=== PATIENT | female | born 1975 | race Caucasian/White ===

== ENCOUNTER 2018-08-11 13:55 | Observation (INO) | payer OTHER ==
[2018-08-11] MEDS ORDERED: PANTOPRAZOLE 40 MG/10 ML VIAL IVP STA (15:01)
[2018-08-11] MEDS ORDERED: SODIUM CHLORIDE 0.9% 1,000 ML IV STA (15:01)
--- NOTE | 2018-08-11 15:04 | ED ---
General Adult HPI - General Chief complaint: GI Bleed Stated complaint: Abd Pain, Rectal Blooding Time Seen by Provider: 08/11/18 14:22 Source: patient, RN notes reviewed Mode of arrival: ambulatory Limitations: no limitations - History of Present Illness Initial comments: Patient is a pleasant 42-year-old female presenting to the emergency Department with rectal bleeding. Onset of symptoms was this morning around 5 AM. Patient has had intermittent cramping with associated bloody diarrhea. has had 5- 6 episodes of bloody diarrhea. Patient states cramping is becoming more constant, more so on the lower abdomen. Patient feels fullness is well. Patient has had some nausea, no vomiting. Patient states she was at [facility] a few weeks ago and had a computed tomography scan showing partial small bowel obstruction. Patient states she does have a history of similar symptoms twice previously associated with Crohn's disease. Patient states she also does have a history of diverticulitis. - Related Data Home Medications Medication Instructions Recorded Confirmed Albuterol Sulfate [Albuterol 2 puff INHALATION RT-Q12H 08/11/18 08/11/18 Sulfate Hfa] Lisinopril 40 mg PO DAILY 08/11/18 08/11/18 Ranitidine HCl [Zantac] 150 mg PO DAILY 08/11/18 08/11/18 metFORMIN HCL [Glucophage] 500 mg PO BID 08/11/18 08/11/18 Allergies Allergy/AdvReac Type Severity Reaction Status Date / Time adhesive Allergy Rash/Hives Verified 08/11/18 14:11 latex Allergy Rash/Hives Verified 08/11/18 14:11 Review of Systems ROS Statement: Those systems with pertinent positive or pertinent negative responses have been documented in the HPI. ROS Other: All systems not noted in ROS Statement are negative. Constitutional: Denies: fever Eyes: Denies: eye pain ENT: Denies: ear pain Respiratory: Denies: cough Cardiovascular: Denies: chest pain Endocrine: Denies: fatigue Gastrointestinal: Reports: abdominal pain, nausea, hematochezia. Denies: vomiting Genitourinary: Denies: dysuria Musculoskeletal: Denies: back pain Skin: Denies: rash Neurological: Denies: weakness Past Medical History Past Medical History: Atrial Fibrillation, Asthma, COPD, Diabetes Mellitus, Hypertension Additional Past Medical History / Comment(s): divirticulitis, crohns, kidney stones History of Any Multi-Drug Resistant Organisms: C-DIFF Date of last positivie culture/infection: 2016 MDRO Source:: stool Past Surgical History: Orthopedic Surgery, Tubal Ligation Additional Past Surgical History / Comment(s): uterine ablasion Past Psychological History: Depression Smoking Status: Current every day smoker Past Alcohol Use History: Rare Past Drug Use History: Marijuana General Exam Limitations: no limitations General appearance: alert, in no apparent distress Head exam: Present: atraumatic Eye exam: Present: normal appearance, PERRL ENT exam: Present: normal oropharynx Neck exam: Present: normal inspection Respiratory exam: Present: normal lung sounds bilaterally Cardiovascular Exam: Present: regular rate, normal rhythm Expanded Peripheral pulses: 2+: Dorsalis Pedis (R), Dorsalis Pedis (L) GI/Abdominal exam: Present: soft, tenderness (Mild tenderness in the epigastrium and left lower quadrant), normal bowel sounds. Absent: distended, guarding, rebound, rigid, pulsatile mass Extremities exam: Present: normal inspection Neurological exam: Present: alert Psychiatric exam: Present: normal affect, normal mood Skin exam: Present: normal color Course Vital Signs 08/11/18 08/11/18 08/11/18 14:08 16:16 17:06 Temperature 98.8 F Pulse Rate 80 79 71 Respiratory 20 18 18 Rate Blood Pressure 186/117 150/105 168/97 O2 Sat by Pulse 96 97 97 Oximetry Medical Decision Making - Medical Decision Making Patient reevaluated and updated. Case was discussed with Dr. celis covering for hospital call who will admit. He does request consults with surgery and GI. Patient does not meet sepsis criteria. There is potential for early mesenteric panniculitis and therefore IV antibiotics will be started pending surgical consultation - Lab Data Result diagrams: 08/11/18 14:40 08/11/18 14:40 Lab Results 08/11/18 08/11/18 08/11/18 Range/Units 14:40 14:40 14:40 WBC 6.5 (3.8-10.6) k/uL RBC 4.53 (3.80-5.40) m/uL Hgb 16.2 H (11.4-16.0) gm/dL Hct 47.3 H (34.0-46.0) % MCV 104.3 H (80.0-100.0) fL MCH 35.8 H (25.0-35.0) pg MCHC 34.3 (31.0-37.0) g/dL RDW 13.3 (11.5-15.5) % Plt Count 299 (150-450) k/uL Neutrophils % 64 % Lymphocytes % 27 % Monocytes % 6 % Eosinophils % 1 % Basophils % 0 % Neutrophils # 4.1 (1.3-7.7) k/uL Lymphocytes # 1.7 (1.0-4.8) k/uL Monocytes # 0.4 (0-1.0) k/uL Eosinophils # 0.1 (0-0.7) k/uL Basophils # 0.0 (0-0.2) k/uL Macrocytosis Slight PT 10.5 (9.0-12.0) sec INR 1.0 (<1.2) APTT 25.0 (22.0-30.0) sec Sodium 138 (137-145) mmol/L Potassium 4.4 (3.5-5.1) mmol/L Chloride 103 (98-107) mmol/L Carbon Dioxide 22 (22-30) mmol/L Anion Gap 13 mmol/L BUN 11 (7-17) mg/dL Creatinine 0.52 (0.52-1.04) mg/dL Est GFR (CKD-EPI)AfAm >90 (>60 ml/min/1.73 sqM) Est GFR (CKD-EPI)NonAf >90 (>60 ml/min/1.73 sqM) Glucose 238 H (74-99) mg/dL Calcium 10.3 H (8.4-10.2) mg/dL Total Bilirubin 0.6 (0.2-1.3) mg/dL AST 89 H (14-36) U/L ALT 103 H (9-52) U/L Alkaline Phosphatase 82 (38-126) U/L Troponin I (0.000-0.034) ng/mL Total Protein 7.5 (6.3-8.2) g/dL Albumin 4.6 (3.5-5.0) g/dL Urine Color Urine Appearance (Clear) Urine pH (5.0-8.0) Ur Specific [place] (1.001-1.035) Urine Protein (Negative) Urine Glucose (UA) (Negative) Urine Ketones (Negative) Urine Blood (Negative) Urine Nitrite (Negative) Urine Bilirubin (Negative) Urine Urobilinogen (<2.0) mg/dL Ur Leukocyte Esterase (Negative) Urine RBC (0-5) /hpf Urine WBC (0-5) /hpf Ur Squamous Epith Cells (0-4) /hpf Urine Bacteria (None) /hpf Urine Mucus (None) /hpf 08/11/18 08/11/18 Range/Units 14:40 14:40 WBC (3.8-10.6) k/uL RBC (3.80-5.40) m/uL Hgb (11.4-16.0) gm/dL Hct (34.0-46.0) % MCV (80.0-100.0) fL MCH (25.0-35.0) pg MCHC (31.0-37.0) g/dL RDW (11.5-15.5) % Plt Count (150-450) k/uL Neutrophils % % Lymphocytes % % Monocytes % % Eosinophils % % Basophils % % Neutrophils # (1.3-7.7) k/uL Lymphocytes # (1.0-4.8) k/uL Monocytes # (0-1.0) k/uL Eosinophils # (0-0.7) k/uL Basophils # (0-0.2) k/uL Macrocytosis PT (9.0-12.0) sec INR (<1.2) APTT (22.0-30.0) sec Sodium (137-145) mmol/L Potassium (3.5-5.1) mmol/L Chloride (98-107) mmol/L Carbon Dioxide (22-30) mmol/L Anion Gap mmol/L BUN (7-17) mg/dL Creatinine (0.52-1.04) mg/dL Est GFR (CKD-EPI)AfAm (>60 ml/min/1.73 sqM) Est GFR (CKD-EPI)NonAf (>60 ml/min/1.73 sqM) Glucose (74-99) mg/dL Calcium (8.4-10.2) mg/dL Total Bilirubin (0.2-1.3) mg/dL AST (14-36) U/L ALT (9-52) U/L Alkaline Phosphatase (38-126) U/L Troponin I <0.012 (0.000-0.034) ng/mL Total Protein (6.3-8.2) g/dL Albumin (3.5-5.0) g/dL Urine Color Yellow Urine Appearance Cloudy H (Clear) Urine pH 6.5 (5.0-8.0) Ur Specific [place] 1.023 (1.001-1.035) Urine Protein 1+ H (Negative) Urine Glucose (UA) 2+ H (Negative) Urine Ketones Negative (Negative) Urine Blood Small H (Negative) Urine Nitrite Negative (Negative) Urine Bilirubin Negative (Negative) Urine Urobilinogen <2.0 (<2.0) mg/dL Ur Leukocyte Esterase Negative (Negative) Urine RBC 3 (0-5) /hpf Urine WBC 1 (0-5) /hpf Ur Squamous Epith Cells 8 H (0-4) /hpf Urine Bacteria Rare H (None) /hpf Urine Mucus Occasional H (None) /hpf - Radiology Data Radiology results: report reviewed (Computed tomography scan of the abdomen pelvis does not reveal acute findings. Diverticulosis without evidence of diverticulitis. Mild jonathan appearance of the mesentery could read present early mesenteric panniculitis), image reviewed (Abdominal x-ray does show a loop left lower abdomen that could represent enteritis or ileus. There is also a questionable area which cannot completely rule out free air.) Disposition Clinical Impression: Lower gastrointestinal hemorrhage Disposition: ADMITTED IP TO THIS HOSP Is patient prescribed a controlled substance at d/c from ED?: No Referrals: None,Stated [Primary Care Provider] - 1-2 days Decision Time: 17:16
[2018-08-11 15:20] LABS: Appearance,Urine Cloudy (Clear); Bacteria,Urine Rare /hpf; Basophils % (A) 0 %; Bilirubin,Urine Negative (Negative); Blood,Urine Small (Negative); Color,Urine Yellow; Eosinophils # (A) 0.1 k/uL (0-0.7); Eosinophils % (A) 1 %; Glucose,Urine (UA) 2+ (Negative); HCT 47.3 % (34.0-46.0); HGB 16.2 gm/dL (11.4-16.0); Ketones,Urine Negative (Negative); Leukocyte Esterase,Urine Negative (Negative); Lymphocytes # (A) 1.7 k/uL (1.0-4.8); Lymphocytes % (A) 27 %; MCH 35.8 pg (25.0-35.0); MCHC 34.3 g/dL (31.0-37.0); MCV 104.3 fL (80.0-100.0); Macrocytosis Slight; Mean Platelet Volume 8.1; Monocytes # (A) 0.4 k/uL (0-1.0); Monocytes % (A) 6 %; Mucus,Urine Occasional /hpf; Neutrophils # (A) 4.1 k/uL (1.3-7.7); Neutrophils % (A) 64 %; Nitrite,Urine Negative (Negative); PH, Urine 6.5 (5.0-8.0); Platelet Count 299 k/uL (150-450); Protein,Urine 1+ (Negative); RBC 4.53 m/uL (3.80-5.40); RBC,Urine 3 /hpf (0-5); RDW 13.3 % (11.5-15.5); Specific Gravity,Urine 1.023 (1.001-1.035); Squamous Epithelial Cell,Urine 8 /hpf (0-4); Urobilinogen,Urine <2.0 mg/dL (<2.0); WBC 6.5 k/uL (3.8-10.6); WBC,Urine 1 /hpf (0-5)
[2018-08-11 15:24] LABS: Prothrombin Time 10.5 sec (9.0-12.0)
[2018-08-11 15:25] LABS: ALT 103 U/L (9-52); AST 89 U/L (14-36); Albumin 4.6 g/dL (3.5-5.0); Alkaline Phosphatase 82 U/L (38-126); Anion Gap 13 mmol/L; Blood Urea Nitrogen 11 mg/dL (7-17); Calcium 10.3 mg/dL (8.4-10.2); Carbon Dioxide 22 mmol/L (22-30); Chloride 103 mmol/L (98-107); Glucose 238 mg/dL (74-99); Potassium 4.4 mmol/L (3.5-5.1); Sodium 138 mmol/L (137-145); Total Bilirubin 0.6 mg/dL (0.2-1.3); Total Protein 7.5 g/dL (6.3-8.2)
--- NOTE | 2018-08-11 15:37 | XR ---
EXAMINATION TYPE: XR abdomen 1V DATE OF EXAM: 08/11/2018 COMPARISON: NONE HISTORY: Pain TECHNIQUE: One view abdominal series FINDINGS: The osseous structures are intact. Subsegmental changes at both lung bases. Previous surgery in the p sudha noted. Vascular calcification seen. Hypertrophic change of the acetabulum can be associated wit h femoral acetabular impingement. Prominent small bowel loop in the left abdomen is seen. Thin lucenc y seen in the right upper quadrant. Tiny amount of free air not excluded. CT scan recommended. IMPRESSION: 1. Prominent small bowel loop in the left abdomen could be associated with an ileus or enteritis. Thi n lucency seen in in the right upper quadrant. Case discussed with ER physician. CT scan recommended.. 2. Basilar subsegmental atelectasis favored over infiltrate.
--- NOTE | 2018-08-11 16:08 | CT ---
EXAMINATION TYPE: CT abdomen pelvis w con DATE OF EXAM: 08/11/2018 HISTORY: Pelvic pain and rectal bleeding CT DLP: 876.2mGycm Automated Exposure Control for Dose Reduction was Utilized. CONTRAST: CT scan of the abdomen and pelvis is performed without oral but with IV Contrast, patient injected wi th 100 mL of Isovue 300. COMPARISON: None. FINDINGS: LUNG BASES: No significant abnormality is appreciated. LIVER/GB: The liver is upper limits of normal to mildly enlarged. Liver is diffusely low-density cons istent with steatosis. PANCREAS: No significant abnormality is seen. SPLEEN: No significant abnormality is seen. ADRENALS: No significant abnormality is seen. KIDNEYS: No significant abnormality is seen. BOWEL: Evaluation bowel suboptimal secondary to lack of enteric contrast. Stomach is poorly distended and thus suboptimally evaluated. There is no suspicious small or large bowel dilatation. Sigmoid col onic diverticulosis is present without convincing CT evidence for acute diverticulitis. Normal-appear ing appendix is seen in the right pelvis. UTERUS/ADNEXA: Anteverted uterus is seen lobulated fundus is suggesting underlying fibroid sagittal i mage 60. Tubal ligation clip along the left superior margin is noted. Scattered pelvic phleboliths ar e seen. Other clip is displaced into pelvic cul-de-sac. LYMPH NODES: No greater than 1cm abdominal or pelvic lymph nodes are appreciated. Prominent but subce ntimeter lymph nodes left mid abdominal mesentery with mild haziness axial image 42 OSSEOUS STRUCTURES: Mild disc space narrowing L4-L5 level. OTHER: No significant additional abnormality is seen. IMPRESSION: No significant acute finding is seen to account for patient's clinical symptoms of pain. Sigmoid colonic diverticulosis is present without CT evidence for acute diverticulitis. Mild jonathan me sentery appearance could reflect a early mesenteric panniculitis left mid to lower abdomen.
[2018-08-11] MEDS ORDERED: HYDROmorphone 1 MG/ML 1 ML SYRINGE IVP STA (16:10)
[2018-08-11] MEDS ORDERED: ENALAPRILAT 1.25 MG/ML 1 ML VIAL IVP STA (16:56)
[2018-08-11] MEDS ORDERED: NALOXONE 0.4 MG/ML 1 ML VIAL IV PRN (17:17)
[2018-08-11] MEDS: SODIUM CHLORIDE 0.9% 1,000 ML IV SCH (19:02)
--- NOTE | 2018-08-11 19:26 | P.HPIM ---
History of Present Illness H&P Date: 08/11/18 The patient is a 42-year-old female with a past medical history of atrial fibrillation (on aspirin only), Crohn's disease (noncompliant with follow-ups), history of diverticulitis, COPD, diabetes mellitus, and hypertension presents to the ED for rectal bleeding. The patient reports that the bleeding started overnight and continued up until afternoon today. She reported that she had 3-4 cups worth of bright red blood per rectum, with associated abdominal pain which started at around 2 AM, with the last bowel movement close to noon. She notes that she has had episodes similar to this in the past when she had been admitted to hospitals and was subsequently diagnosed with Crohn's disease. She however failed to follow-up with any GI doctor and notes that she seldom follows up with her PMD. Patient also noted that she has had chronic persistent diarrhea for the past few months, which is not alleviated with any [id number] medications. The patient also reported that she had gone to an urgent care center 2 days ago where she was informed that she had a partial small bowel obstruction. At time of interview, she reports that her pain is a 6 out of 10, in the lower abdomen, nonradiating, with associated nausea. She also endorsed one episode of vomiting earlier today. She otherwise denied fever, chills, chest pain, shortness of breath, or dysuria. The patient underwent an extensive evaluation in the ED with WBC count 6.4, hemoglobin 16.2, AST 89, ALT 103, and an abdominal pelvis computed tomography scan with contrast showing possible early mesenteric panniculitis. The patient was subsequently admitted to the medicine service for further management. Review of Systems Pertinent positives and negatives as discussed in HPI, a complete review of systems was performed and all other systems are negative. Past Medical History Past Medical History: Atrial Fibrillation, Asthma, COPD, Diabetes Mellitus, Hy pertension Additional Past Medical History / Comment(s): divirticulitis, crohns, kidney stones History of Any Multi-Drug Resistant Organisms: C-DIFF Date of last positivie culture/infection: 2015 MDRO Source:: stool Past Surgical History: Orthopedic Surgery, Tubal Ligation Additional Past Surgical History / Comment(s): uterine ablasion Past Psychological History: Depression Smoking Status: Current every day smoker Past Alcohol Use History: Rare Past Drug Use History: Marijuana Medications and Allergies Home Medications Medication Instructions Recorded Confirmed Type Albuterol Sulfate [Albuterol 2 puff INHALATION RT-Q12H 08/11/18 08/11/18 History Sulfate Hfa] Lisinopril 40 mg PO DAILY 08/11/18 08/11/18 History Ranitidine HCl [Zantac] 150 mg PO DAILY 08/11/18 08/11/18 History metFORMIN HCL [Glucophage] 500 mg PO BID 08/11/18 08/11/18 History Allergies Allergy/AdvReac Type Severity Reaction Status Date / Time adhesive Allergy Rash/Hives Verified 08/11/18 14:11 latex Allergy Rash/Hives Verified 08/11/18 14:11 Physical Exam Vitals: Vital Signs Temp Pulse Resp BP Pulse Ox 08/11/18 18:51 98.7 F 61 18 156/102 97 08/11/18 17:06 71 18 168/97 97 08/11/18 16:16 79 18 150/105 97 08/11/18 14:08 98.8 F 80 20 186/117 96 Intake and Output 08/11/18 08/11/18 08/11/18 06:59 14:59 22:59 Other: Weight 72.575 kg Results CBC & Chem 7: 08/11/18 14:40 08/11/18 14:40 Labs: Abnormal Lab Results - Last 24 Hours (Table) 08/11/18 08/11/18 08/11/18 Range/Units 14:40 14:40 14:40 Hgb 16.2 H (11.4-16.0) gm/dL Hct 47.3 H (34.0-46.0) % MCV 104.3 H (80.0-100.0) fL MCH 35.8 H (25.0-35.0) pg Glucose 238 H (74-99) mg/dL Calcium 10.3 H (8.4-10.2) mg/dL AST 89 H (14-36) U/L ALT 103 H (9-52) U/L Urine Appearance Cloudy H (Clear) Urine Protein 1+ H (Negative) Urine Glucose (UA) 2+ H (Negative) Urine Blood Small H (Negative) Ur Squamous Epith Cells 8 H (0-4) /hpf Urine Bacteria Rare H (None) /hpf Urine Mucus Occasional H (None) /hpf Assessment and Plan Plan: Acute Crohn's disease flare with GI bleeding -Nothing by mouth for now -GI consulted -IV fluids -Monitor CBC Atrial fibrillation -Patient reports that she does not wish to take anticoagulants since 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 CODE STATUS:Full Code Discussed with: Patient Anticipated discharge date: 08/13/[address]: Home A total of 40 minutes was spent on the care of this complex patient more than 50% of the time was spent in counseling and care coordination.
[2018-08-11 20:12] LABS: HCT 47.1 % (34.0-46.0); HGB 16.2 gm/dL (11.4-16.0); MCH 36.4 pg (25.0-35.0); MCHC 34.5 g/dL (31.0-37.0); MCV 105.5 fL (80.0-100.0); Macrocytosis Slight; Mean Platelet Volume 7.6; Platelet Count 285 k/uL (150-450); RBC 4.46 m/uL (3.80-5.40); RDW 13.2 % (11.5-15.5); WBC 6.3 k/uL (3.8-10.6)
[2018-08-11] MEDS: MORPHINE SULFATE 4 MG/ML SYRINGE IVP PRN (20:23)
[2018-08-11 21:14] LABS: Glucose,Whole Blood 167 mg/dL (75-99)
[2018-08-11] MEDS: INSULIN ASPART (NovoLOG) 100 UNIT/ML VIAL SQ SCH (21:17)
[2018-08-11] MEDS: ALBUTEROL NEBULIZED 2.5 MG/3 ML INHALATION SCH (21:43)
[2018-08-12] MEDS: MORPHINE SULFATE 4 MG/ML SYRINGE IVP PRN ×2 (02:20→06:10)
[2018-08-12] MEDS: SODIUM CHLORIDE 0.9% 1,000 ML IV SCH (05:59)
[2018-08-12 06:54] LABS: Glucose,Whole Blood 179 mg/dL (75-99)
[2018-08-12] MEDS ORDERED: MORPHINE SULFATE 2 MG/ML SYRINGE IVP PRN (07:19)
[2018-08-12] MEDS ORDERED: PANTOPRAZOLE 40 MG TABLET PO SCH (07:30)
[2018-08-12] MEDS: ALBUTEROL NEBULIZED 2.5 MG/3 ML INHALATION SCH (07:43)
[2018-08-12 07:52] VITALS: RESP 16
[2018-08-12] MEDS ORDERED: LISINOPRIL 20 MG TAB PO SCH (09:00)
[2018-08-12] MEDS ORDERED: PANTOPRAZOLE 40 MG/10 ML VIAL IV SCH (09:00)
[2018-08-12] MEDS: INSULIN ASPART (NovoLOG) 100 UNIT/ML VIAL SQ SCH ×2 (10:12→16:13)
--- NOTE | 2018-08-12 11:19 | P.CONS ---
History of Present Illness - Reason for Consult Consult date: 08/12/18 Abdominal pain and rectal bleeding history of Crohn's Requesting physician: Parish Arias - Chief Complaint Abdominal pain and rectal bleeding history of Crohn's - History of Present Illness 42-year-old female with a reported history of Crohn's disease diagnosed at 12 years of age, marijuana usage, diabetes, remote alcohol abuse, remote cocaine abuse, colonic diverticulosis, Clostridium difficile colitis admitted with multiple complaints such as nausea vomiting acute on chronic abdominal pain and blood-tinged diarrhea 2 days. She has chronic diarrhea on a daily basis several times a day usually not bloody. She reports being evaluated at a local urgent care center within the past week and was told she had a bowel obstruction. Admission no episodes of diarrhea or rectal bleeding. Patient is new to the [facility] she reports a diagnosis of Crohn's at the age of 12 but has not followed up with a driller helper in several years. Last colonoscopy to her memory possibly 8 years ago remembers colonic diverticulosis but unsure if she had active inflammatory bowel disease. She's been on previous maintenance medications but cannot recall the names because it's been so many years. Denies fever chills hematemesis or melena. Pain is chronic for several years generalized across the mid to lower abdomen. She smokes marijuana to sustain her appetite. She has multiple tattoos most of them not performed and a tattoo parlor. No history of known liver disorders or hepatitis. No history of intravenous drug abuse. No history of bowel or gastric resection/surgeries. No recent antibiotics. No changes in vision or skin. No changes in diet recent travels or sick contacts. No active alcohol consumption no NSAIDs or aspirin. White count 6.5. Hemoglobin 16.2. MCV 104. Platelet 299. Repeat hemoglobin 16.2. INR 1.0. BUN 11. Creatinine 0.5. Total bilirubin 0.6. AST 89. ALT 103. AP 82. Troponin less than 0.012. Afebrile. CT abdomen and pelvis no suspicious small or large bowel dilatation. Sigmoid colonic diverticulosis no evidence of acute diverticulitis. Normal appearing appendix. Review of Systems Constitutional: Denies fever, chills, sweats, weight gain, or loss. HEENT: Negative for migraines, blurred vision or loss, earaches, drainage, tinnitus, oral mucosal lesions, dysphagia, or odynophagia. CARDIAC: History of atrial fibrillation. Negative for chest pain, arrhythmias, or palpitation. RESPIRATORY: Negative for shortness of breath, hemoptysis, cough, or sputum production. GI: See HPI for pertinent findings. : Negative for hematuria, urgency, frequency, polyuria, or dysuria. GYNc: Denies the possibility of . Negative vaginal discharge. MUSCULOSKELETAL: Negative for muscle aches, swelling, arthritis, and arthralgias. NEUROLOGIC: Negative for stroke or TIA. ENDOCRINE: Negative for thyroid problems. SKIN: Negative for rash or itching. PSYCHIATRIC: History of anxiety. Past Medical History Past Medical History: Atrial Fibrillation, Asthma, COPD, Diabetes Mellitus, Hypertension Additional Past Medical History / Comment(s): divirticulitis, crohns, kidney stones History of Any Multi-Drug Resistant Organisms: C-DIFF Year Discovered:: 2015 MDRO Source:: stool Past Surgical History: Orthopedic Surgery, Tubal Ligation Additional Past Surgical History / Comment(s): uterine ablasion Past Anesthesia/Blood Transfusion Reactions: No Reported Reaction Past Psychological History: Depression Smoking Status: Current every day smoker Past Alcohol Use History: Daily Additional Past Alcohol Use History / Comment(s): pt states she drinks one "double shot" of liquor per day. Past Drug Use History: Marijuana - Past Family History Mother Family Medical History: COPD Father Family Medical History: Cancer, COPD Medications and Allergies Home Medications Medication Instructions Recorded Confirmed Type Albuterol Sulfate [Albuterol 2 puff INHALATION RT-Q12H 08/11/18 08/11/18 History Sulfate Hfa] Lisinopril 40 mg PO DAILY 08/11/18 08/11/18 History Ranitidine HCl [Zantac] 150 mg PO DAILY 08/11/18 08/11/18 History metFORMIN HCL [Glucophage] 500 mg PO BID 08/11/18 08/11/18 History Allergies Allergy/AdvReac Type Severity Reaction Status Date / Time adhesive Allergy Rash/Hives Verified 08/11/18 14:11 latex Allergy Rash/Hives Verified 08/11/18 14:11 Physical Exam Vitals: Vital Signs Temp Pulse Pulse Resp BP BP Pulse Ox 08/12/18 10:31 167/96 08/12/18 07:00 98.2 F 71 16 153/101 95 08/12/18 06:08 154/93 08/12/18 01:45 98.3 F 71 18 137/98 96 08/11/18 19:30 98.0 F 60 18 148/95 96 08/11/18 19:06 98.4 F 59 L 18 142/95 96 08/11/18 18:51 98.7 F 61 18 156/102 97 08/11/18 17:06 71 18 168/97 97 08/11/18 16:16 79 18 150/105 97 08/11/18 14:08 98.8 F 80 20 186/117 96 Intake and Output 08/11/18 08/12/18 08/12/18 22:59 06:59 14:59 Intake Total 240 1750 Balance 240 1750 Intake: Intake, IV Titration 1750 Amount Sodium Chloride 0.9% 1, 1000 000 ml @ 100 mls/hr IV . Q10H STA Rx#:[id number] Sodium Chloride 0.9% 1, 750 000 ml @ 75 mls/hr IV . [id number] JEYSON Rx#:[id number] Oral 240 Other: # Voids 1 3 General appearance: The patient is alert, oriented, in no acute distress. Tearful anxious but polite and pleasant. HET: Head is normocephalic and atraumatic. Pupils are equal and reactive. Oropharynx is clear without lesions. Neck: Supple without lymphadenopathy. Trachea midline. Heart: S1 S2. Regular rate and rhythm. Lungs: No crackles or wheezes are heard. Abdomen: Soft, very mild tenderness across the midabdomen, nondistended with b owel sounds. No peritoneal signs. No palpable organomegaly or masses. Extremities: Multiple tattoos on all extremities. Normal skin color and turgor. No cyanosis, rash, ulceration, clubbing, or edema. Radial and pedal pulses are 2/4 bilaterally. Neurological: No focal deficits. Strength and sensation are grossly intact. Results CBC & Chem 7: 08/11/18 19:56 08/11/18 14:40 Labs: Abnormal Lab Results - Last 24 Hours (Table) 08/11/18 08/11/18 08/11/18 Range/Units 14:40 14:40 14:40 Hgb 16.2 H (11.4-16.0) gm/dL Hct 47.3 H (34.0-46.0) % MCV 104.3 H (80.0-100.0) fL MCH 35.8 H (25.0-35.0) pg Glucose 238 H (74-99) mg/dL POC Glucose (mg/dL) (75-99) mg/dL Calcium 10.3 H (8.4-10.2) mg/dL AST 89 H (14-36) U/L ALT 103 H (9-52) U/L Urine Appearance Cloudy H (Clear) Urine Protein 1+ H (Negative) Urine Glucose (UA) 2+ H (Negative) Urine Blood Small H (Negative) Ur Squamous Epith Cells 8 H (0-4) /hpf Urine Bacteria Rare H (None) /hpf Urine Mucus Occasional H (None) /hpf 08/11/18 08/11/18 08/12/18 Range/Units 19:56 21:13 06:52 Hgb 16.2 H (11.4-16.0) gm/dL Hct 47.1 H (34.0-46.0) % MCV 105.5 H (80.0-100.0) fL MCH 36.4 H (25.0-35.0) pg Glucose (74-99) mg/dL POC Glucose (mg/dL) 167 H 179 H (75-99) mg/dL Calcium (8.4-10.2) mg/dL AST (14-36) U/L ALT (9-52) U/L Urine Appearance (Clear) Urine Protein (Negative) Urine Glucose (UA) (Negative) Urine Blood (Negative) Ur Squamous Epith Cells (0-4) /hpf Urine Bacteria (None) /hpf Urine Mucus (None) /hpf CT scan - abdomen: report reviewed (Dr. Gilbert) Assessment and Plan (1) Abdominal pain Narrative/Plan: 42-year-old female admitted with history of Clostridium difficile colitis symptoms of acute on chronic abdominal pain with chronic diarrhea blood-tinged over the last 2 days with a hemoglobin of 16.2 and reported history of Crohn's disease diagnosed at age 12 with no current follow-up presently not on maintenance medications. Patient's history of Crohn's is somewhat limited most recent colonoscopy to her memory was several years ago details of her inflammatory bowel disease previous maintenance medications are not clear at this time. Etiology of her abdominal pain is unclear differentials to consider but not excluded are possible gastroenteritis possible irritable bowel syndrome- D, possible exacerbation of inflammatory bowel disease, possible infectious colitis. Bleeding could be hemorrhoidal in nature possible diverticular in nature underlying neoplasm, bleeding AVM, focal colitis cannot be excluded however computed tomography scan reported no evidence of colonic inflammation, colitis bowel obstruction or diverticulitis. Current Visit: Yes Status: Acute Code(s): R10.9 - UNSPECIFIED ABDOMINAL PAIN SNOMED Code(s): 26202218 (2) Transaminitis Narrative/Plan: Mild transaminitis without jaundice or elevation in alkaline phosphatase Current Visit: Yes Status: Acute Code(s): R74.0 - NONSPEC ELEV OF LEVELS OF TRANSAMNS & LACTIC ACID DEHYDRGNSE SNOMED Code(s): 089613581 Plan: 1. Sed rate CRP stool studies including stool culture, Clostridium difficile testing, lactoferrin and calprotectin. 2. Low residue diet as tolerated. 3. Bentyl 20 mg 4 times a day. 4. Hepatitis screen. 5. Inpatient endoscopic exams not planned until more information can be received and evaluate her regarding her history of inflammatory bowel disease. She was advised to follow up in the outpatient setting in 2-3 weeks for reevaluation. At that time we'll review requested stool studies and chemistries and discussed outpatient EGD colonoscopy. Thank you for this kind referral and the opportunity to participate in the care of your patient. This consultation was discussed with Dr. Gilbert. The impression and plan of care have been directed as dictated.
[2018-08-12 11:42] LABS: Glucose,Whole Blood 201 mg/dL (75-99)
[2018-08-12] MEDS ORDERED: DICYCLOMINE 20 MG TAB PO SCH (12:00)
--- NOTE | 2018-08-12 13:33 | P.GSCN ---
History of Present Illness Consult date: 08/12/18 Reason for Consult: lower gi hemorrhage Requesting physician: Mane Macdonald History of present illness: CHIEF COMPLAINT: Rectal bleeding, abdominal pain HISTORY OF PRESENT ILLNESS: 42-year-old female who presented to the emergency room with a chief complaint of abdominal pain and rectal bleeding. Patient reports chronic abdominal pain which has worsened over the last few days. She reports "cramping" of her lower abdomen during examination. She reports nausea without emesis. She reports chronic diarrhea. She reports blood in her stool over the past few days. She reports a history of Crohns disease diagnosed at age 12 and also diverticulitis. Patient states she has not had a colonoscopy in several years. Patient states she is new to the area and has not established with a GI physician yet. WBC 6.5. Hemoglobin 16.2. Total bilirubin 0.6. AST 89. ALT 103. PAST MEDICAL HISTORY: See list. PAST SURGICAL HISTORY: See list. SOCIAL HISTORY: No illicit drug use. REVIEW OF SYSTEMS: CONSTITUTIONAL: Denies fever or chills. HEENT: Denies blurred vision, vision changes, or eye pain. Denies hemoptysis CARDIOVASCULAR: Denies chest pain or pressure. RESPIRATORY: No shortness of breath. GASTROINTESTINAL: Refer to HPI for pertinent findings HEMATOLOGIC: Denies bleeding disorders. GENITOURINARY: Denies any blood in urine. SKIN: Denies pruitis. Denies rash. PHYSICAL EXAM: VITAL SIGNS: Reviewed. GENERAL: Well-developed in no acute distress. HEENT: No sclera icterus. Extraocular movements grossly intact. Moist buccal mucosa. Head is atraumatic, normocephalic. ABDOMEN: Soft. Nondistended. Nontender. NEUROLOGIC: Alert and oriented. Cranial nerves II through XII grossly intact. IMAGING: Per radiologist's dictation: 1. CT abdomen and pelvis: No significant acute finding is seen to account for patient's clinical symptoms of pain. Sigmoid colonic diverticulosis is present without CT evidence for acute diverticulitis. Mild jonathan mesentery appearance could reflect early mesenteric panniculitis left mid to lower abdomen. ASSESSMENT: 1. Abdominal pain with blood-tinged diarrhea in a patient with history of Crohns disease 2. Diverticulosis without CT evidence of diverticulitis 3. Transaminitis PLAN: No surgical intervention recommended at this time. Continue workup and management per GI services. Nurse practitioner note has been reviewed by physician. Signing provider agrees with the documented findings, assessment, and plan of care. Past Medical History Past Medical History: Atrial Fibrillation, Asthma, COPD, Diabetes Mellitus, Hypertension Additional Past Medical History / Comment(s): divirticulitis, crohns, kidney stones History of Any Multi-Drug Resistant Organisms: C-DIFF Year Discovered:: 2016 MDRO Source:: stool Past Surgical History: Orthopedic Surgery, Tubal Ligation Additional Past Surgical History / Comment(s): uterine ablasion Past Anesthesia/Blood Transfusion Reactions: No Reported Reaction Past Psychological History: Depression Smoking Status: Current every day smoker Past Alcohol Use History: Daily Additional Past Alcohol Use History / Comment(s): pt states she drinks one "double shot" of liquor per day. Past Drug Use History: Marijuana - Past Family History Mother Family Medical History: COPD Father Family Medical History: Cancer, COPD Medications and Allergies Home Medications Medication Instructions Recorded Confirmed Type Albuterol Sulfate [Albuterol 2 puff INHALATION RT-Q12H 08/11/18 08/11/18 History Sulfate Hfa] Lisinopril 40 mg PO DAILY 08/11/18 08/11/18 History Ranitidine HCl [Zantac] 150 mg PO DAILY 08/11/18 08/11/18 History metFORMIN HCL [Glucophage] 500 mg PO BID 08/11/18 08/11/18 History Allergies Allergy/AdvReac Type Severity Reaction Status Date / Time adhesive Allergy Rash/Hives Verified 08/11/18 14:11 latex Allergy Rash/Hives Verified 08/11/18 14:11 Surgical - Exam Vital Signs Temp Pulse Resp BP Pulse Ox 98.8 F 80 20 186/117 96 08/11/18 14:08 08/11/18 14:08 08/11/18 14:08 08/11/18 14:08 08/11/18 14:08 Results - Labs 08/11/18 19:56 08/11/18 14:40 Abnormal Lab Results - Last 24 Hours (Table) 08/11/18 08/11/18 08/11/18 Range/Units 14:40 14:40 14:40 Hgb 16.2 H (11.4-16.0) gm/dL Hct 47.3 H (34.0-46.0) % MCV 104.3 H (80.0-100.0) fL MCH 35.8 H (25.0-35.0) pg Glucose 238 H (74-99) mg/dL POC Glucose (mg/dL) (75-99) mg/dL Calcium 10.3 H (8.4-10.2) mg/dL AST 89 H (14-36) U/L ALT 103 H (9-52) U/L Urine Appearance Cloudy H (Clear) Urine Protein 1+ H (Negative) Urine Glucose (UA) 2+ H (Negative) Urine Blood Small H (Negative) Ur Squamous Epith Cells 8 H (0-4) /hpf Urine Bacteria Rare H (None) /hpf Urine Mucus Occasional H (None) /hpf 08/11/18 08/11/18 08/12/18 Range/Units 19:56 21:13 06:52 Hgb 16.2 H (11.4-16.0) gm/dL Hct 47.1 H (34.0-46.0) % MCV 105.5 H (80.0-100.0) fL MCH 36.4 H (25.0-35.0) pg Glucose (74-99) mg/dL POC Glucose (mg/dL) 167 H 179 H (75-99) mg/dL Calcium (8.4-10.2) mg/dL AST (14-36) U/L ALT (9-52) U/L Urine Appearance (Clear) Urine Protein (Negative) Urine Glucose (UA) (Negative) Urine Blood (Negative) Ur Squamous Epith Cells (0-4) /hpf Urine Bacteria (None) /hpf Urine Mucus (None) /hpf 08/12/18 Range/Units 11:40 Hgb (11.4-16.0) gm/dL Hct (34.0-46.0) % MCV (80.0-100.0) fL MCH (25.0-35.0) pg Glucose (74-99) mg/dL POC Glucose (mg/dL) 201 H (75-99) mg/dL Calcium (8.4-10.2) mg/dL AST (14-36) U/L ALT (9-52) U/L Urine Appearance (Clear) Urine Protein (Negative) Urine Glucose (UA) (Negative) Urine Blood (Negative) Ur Squamous Epith Cells (0-4) /hpf Urine Bacteria (None) /hpf Urine Mucus (None) /hpf Diabetes panel 08/11/18 Range/Units 14:40 Sodium 138 (137-145) mmol/L Potassium 4.4 (3.5-5.1) mmol/L Chloride 103 (98-107) mmol/L Carbon Dioxide 22 (22-30) mmol/L BUN 11 (7-17) mg/dL Creatinine 0.52 (0.52-1.04) mg/dL Glucose 238 H (74-99) mg/dL Calcium 10.3 H (8.4-10.2) mg/dL AST 89 H (14-36) U/L ALT 103 H (9-52) U/L Alkaline Phosphatase 82 (38-126) U/L Total Protein 7.5 (6.3-8.2) g/dL Albumin 4.6 (3.5-5.0) g/dL Calcium panel 08/11/18 Range/Units 14:40 Calcium 10.3 H (8.4-10.2) mg/dL Albumin 4.6 (3.5-5.0) g/dL Pituitary panel 08/11/18 Range/Units 14:40 Sodium 138 (137-145) mmol/L Potassium 4.4 (3.5-5.1) mmol/L Chloride 103 (98-107) mmol/L Carbon Dioxide 22 (22-30) mmol/L BUN 11 (7-17) mg/dL Creatinine 0.52 (0.52-1.04) mg/dL Glucose 238 H (74-99) mg/dL Calcium 10.3 H (8.4-10.2) mg/dL Adrenal panel 08/11/18 Range/Units 14:40 Sodium 138 (137-145) mmol/L Potassium 4.4 (3.5-5.1) mmol/L Chloride 103 (98-107) mmol/L Carbon Dioxide 22 (22-30) mmol/L BUN 11 (7-17) mg/dL Creatinine 0.52 (0.52-1.04) mg/dL Glucose 238 H (74-99) mg/dL Calcium 10.3 H (8.4-10.2) mg/dL Total Bilirubin 0.6 (0.2-1.3) mg/dL AST 89 H (14-36) U/L ALT 103 H (9-52) U/L Alkaline Phosphatase 82 (38-126) U/L Total Protein 7.5 (6.3-8.2) g/dL Albumin 4.6 (3.5-5.0) g/dL Assessment and Plan (1) Crohn's disease Current Visit: Yes Status: Acute Code(s): K50.90 - CROHN'S DISEASE, UNSPECIFIED, WITHOUT COMPLICATIONS SNOMED Code(s): 32725535 (2) Abdominal pain Current Visit: Yes Status: Acute Code(s): R10.9 - UNSPECIFIED ABDOMINAL PAIN SNOMED Code(s): 22837894 (3) Transaminitis Current Visit: Yes Status: Acute Code(s): R74.0 - NONSPEC ELEV OF LEVELS OF TRANSAMNS & LACTIC ACID DEHYDRGNSE SNOMED Code(s): 389721419
[2018-08-12 14:48] VITALS: BP 147/81; PULSE 67; TEMP 98.3
--- NOTE | 2018-08-12 16:16 | P.PN ---
Subjective Progress Note Date: 08/12/18 Patient was seen and examined at the bedside on 08/12/2018. She reports that her abdominal pain and diarrhea have improved since yesterday, currently at a 4 out of 10. She hasn't had any additional bowel movements since midnight. She further denied fever, chills, or dysuria. Objective - Vital Signs Vital signs: Vital Signs Temp 98.2 F 08/12/18 07:00 Pulse 71 08/12/18 07:00 Resp 16 08/12/18 07:00 BP 167/96 08/12/18 10:31 Pulse Ox 95 08/12/18 07:00 Intake & Output 08/11/18 08/12/18 08/12/18 18:59 06:59 18:59 Intake Total 1989 Balance 1989 Weight 72.575 kg Intake: Intake, IV Titration 1750 Amount Sodium Chloride 0.9% 1, 1000 000 ml @ 100 mls/hr IV . Q10H STA Rx#:[id number] Sodium Chloride 0.9% 1, 750 000 ml @ 75 mls/hr IV . [id number] JEYSON Rx#:[id number] Oral 240 Other: # Voids 3 3 # Bowel Movements 0 - Exam General: Non-toxic, in no acute distress, appears older than stated age, normal weight HEENT: NC/AT, anicteric sclerae, moist conjunctiva, no lid-lag, PERRLA Cardiovascular: S1/S2 wnl, no murmurs, rubs, or gallops Lungs: Clear to auscultation, normal respiratory effort, no accessory muscle use Abdominal: Soft, mild diffuse tenderness to palpation, non-distended, no guarding, rebound, or rigidity Skin: Warm, dry Extremities: No edema or contractures Psychiatric: Alert and oriented to person, place and time, appropriate affect Neuro: CN II-XII grossly intact, Strength 5/5 in all 4 extremities, Speech intact, Sensation to light touch grossly intact throughout - Labs CBC & Chem 7: 08/11/18 19:56 08/11/18 14:40 Labs: Abnormal Lab Results - Last 24 Hours (Table) 08/11/18 08/11/18 08/11/18 Range/Units 14:40 14:40 14:40 Hgb 16.2 H (11.4-16.0) gm/dL Hct 47.3 H (34.0-46.0) % MCV 104.3 H (80.0-100.0) fL MCH 35.8 H (25.0-35.0) pg Glucose 238 H (74-99) mg/dL POC Glucose (mg/dL) (75-99) mg/dL Calcium 10.3 H (8.4-10.2) mg/dL AST 89 H (14-36) U/L ALT 103 H (9-52) U/L Urine Appearance Cloudy H (Clear) Urine Protein 1+ H (Negative) Urine Glucose (UA) 2+ H (Negative) Urine Blood Small H (Negative) Ur Squamous Epith Cells 8 H (0-4) /hpf Urine Bacteria Rare H (None) /hpf Urine Mucus Occasional H (None) /hpf 08/11/18 08/11/18 08/12/18 Range/Units 19:56 21:13 06:52 Hgb 16.2 H (11.4-16.0) gm/dL Hct 47.1 H (34.0-46.0) % MCV 105.5 H (80.0-100.0) fL MCH 36.4 H (25.0-35.0) pg Glucose (74-99) mg/dL POC Glucose (mg/dL) 167 H 179 H (75-99) mg/dL Calcium (8.4-10.2) mg/dL AST (14-36) U/L ALT (9-52) U/L Urine Appearance (Clear) Urine Protein (Negative) Urine Glucose (UA) (Negative) Urine Blood (Negative) Ur Squamous Epith Cells (0-4) /hpf Urine Bacteria (None) /hpf Urine Mucus (None) /hpf 08/12/18 Range/Units 11:40 Hgb (11.4-16.0) gm/dL Hct (34.0-46.0) % MCV (80.0-100.0) fL MCH (25.0-35.0) pg Glucose (74-99) mg/dL POC Glucose (mg/dL) 201 H (75-99) mg/dL Calcium (8.4-10.2) mg/dL AST (14-36) U/L ALT (9-52) U/L Urine Appearance (Clear) Urine Protein (Negative) Urine Glucose (UA) (Negative) Urine Blood (Negative) Ur Squamous Epith Cells (0-4) /hpf Urine Bacteria (None) /hpf Urine Mucus (None) /hpf Assessment and Plan Plan: Abdominal pain, diarrhea -GI recs appreciated -Workup pending, including hepatitis screen, ESR, CRP, C. 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
[2018-08-12 23:48] LABS: Hepatitis A Antibody IgM Non-Reactive (Non-Reactive); Hepatitis B Core IgM Non-Reactive (Non-Reactive)
== END 2018-08-12 18:14 | disposition home or self-care (01) ==
LOC: EC 13:55 → 4SSUR 17:17
PROVIDERS: ADMIT Internal Medicine; ATTEND Internal Medicine
DX: K92.2 Gastrointestinal hemorrhage, unspecified (principal); K52.9 Noninfective gastroenteritis and colitis, unspecified; R10.9 Unspecified abdominal pain; E11.9 Type 2 diabetes mellitus without complications; K50.90 Crohn's disease, unspecified, without complications; E78.5 Hyperlipidemia, unspecified; I10 Essential (primary) hypertension; F32.9 Major depressive disorder, single episode, unspecified; I48.91 Unspecified atrial fibrillation; K57.30 Diverticulosis of large intestine without perforation or abscess without bleeding; J44.9 Chronic obstructive pulmonary disease, unspecified; Z79.899 Other long term (current) drug therapy; Z79.84 Long term (current) use of oral hypoglycemic drugs; R74.0 Nonspecific elevation of levels of transaminase and lactic acid dehydrogenase [LDH]; F17.200 Nicotine dependence, unspecified, uncomplicated; Z87.442 Personal history of urinary calculi; Z91.19 Patient's noncompliance with other medical treatment and regimen; Z86.19 Personal history of other infectious and parasitic diseases; Z82.5 Family history of asthma and other chronic lower respiratory diseases
CPT/HCPCS: 96376; 96361 ×3; 96375 ×2; 96374; 99285; 36415; 80053; 80074; 84484; 85025; 85027; 85610; 85730; 86140; 81001; 74018; 74177; G0378 ×2; J2270 ×3; J1170; C9113 ×2; Q9967

== ENCOUNTER → 2018-08-20 | Outpatient (CLI) | payer OTHER ==
[2018-08-20 15:21] LABS: Basophils % (A) 0 %; Eosinophils # (A) 0.1 k/uL (0-0.7); Eosinophils % (A) 1 %; HCT 48.7 % (34.0-46.0); HGB 16.1 gm/dL (11.4-16.0); Lymphocytes # (A) 1.6 k/uL (1.0-4.8); Lymphocytes % (A) 24 %; MCH 35.1 pg (25.0-35.0); MCHC 33.2 g/dL (31.0-37.0); MCV 105.9 fL (80.0-100.0); Macrocytosis Slight; Mean Platelet Volume 7.8; Monocytes # (A) 0.4 k/uL (0-1.0); Monocytes % (A) 6 %; Neutrophils # (A) 4.6 k/uL (1.3-7.7); Neutrophils % (A) 68 %; Platelet Count 307 k/uL (150-450); RDW 13.1 % (11.5-15.5); WBC 6.7 k/uL (3.8-10.6)
[2018-08-20 17:28] LABS: Erythrocyte Sedimentation Rate 8 mm/hr (0-20)
[2018-08-20 23:10] LABS: Albumin 4.7 g/dL (3.80-4.90); Albumin/Globulin Ratio 2.14 (1.60-3.17); Anion Gap 10.1 mmol/L (4.00-12.00); Bilirubin, Conjugated 0.2 mg/dL (0.20-0.40); Bilirubin,Unconjugated 0.4 mg/dL; C Reactive Protein 0.4 mg/dL (0.0-0.8); Calcium 9.7 mg/dL (8.7-10.3); Carbon Dioxide 23.9 mmol/L (21.6-31.8); Globulin 2.2 g/dL (1.6-3.3); Potassium 4.4 mmol/L (3.5-5.5); Total Bilirubin 0.6 mg/dL (0.3-1.2); Total Protein 6.9 g/dL (6.2-8.2)
[2018-08-21 00:12] LABS: Gliadin AB IgA, Unit 1.7 U/mL
[2018-08-21 00:32] LABS: Iron Saturation 56.69 (12.00-45.00)
[2018-08-21 12:23] LABS: Ceruloplasmin 24.3 mg/dL (20.0-60.0)
[2018-08-23 13:53] LABS: Liver/Kidney Microsome Antibod 1.4 UNITS (<=20)
== END ==
LOC: LABWHC1 14:45
PROVIDERS: ATTEND Internal Medicine
DX: K52.9 Noninfective gastroenteritis and colitis, unspecified (principal); R74.8 Abnormal levels of other serum enzymes
CPT/HCPCS: 36415; 80053; 82103; 82248; 82390; 82728; 83516; 83540; 83550; 85025; 85652; 86038; 86140; 86376

== ENCOUNTER → 2018-12-17 | Outpatient (CLI) | payer OTHER ==
--- NOTE | 2018-12-17 09:40 | US ---
EXAMINATION TYPE: US abdomen complete DATE OF EXAM: 12/17/2018 COMPARISON: CT 08/11/2018 CLINICAL HISTORY: R74.8 abnormal levels of serum enzymes. EXAM MEASUREMENTS: Liver Length: 18.8 cm Gallbladder Wall: 0.2 cm CBD: 0.5 cm Spleen: 9.3 cm Right Kidney: 11.4 x 5.7 x 4.7 cm Left Kidney: 11.5 x 5.5 x 5.1 cm Pancreas: No obvious masses Liver: Increased attenuation, focal sparing near GB Gallbladder: wnl Evidence for sonographic Gray's sign: No CBD: wnl Spleen: wnl Right Kidney: No hydronephrosis or masses seen Left Kidney: No hydronephrosis or masses seen Upper IVC: wnl Abd Aorta: wnl Area of alternate echogenicity within the liver is most typical focal fatty sparing. IMPRESSION: 1. Correlate for hepatic steatosis with focal area of hepatic sparing correlate with LFTs to exclude hepatitis.
--- NOTE | 2018-12-17 12:43 | EST ---
EXERCISE STRESS AGE: 43 SEX: F HT: 65" WT: 155 PROTOCOL: Hector Stress Test STAGE: IV DURATION OF EXERCISE: 10:00 HEART RATE REST: 80 BLOOD PRESSURE REST: 129/83 MAXIMUM HEART RATE ACHIEVED: 147 MAXIMUM BLOOD PRESSURE: 202/96 85% MPHR: 149 100% MPHR: 175 METS: 10.8 INDICATIONS: Abnormal EKG CLINICAL INFORMATION: STRESS DATA: Heart rate 80, pressure is 129/93 mmHg. Baseline EKG showed sinus mechanism. The patient exercised on the treadmill according to Hector protocol for a total of 10 minutes and achieved 10.8 METS. Max heart rate was 147, which is about 84% of maximum predicted heart rate. Maximum blood pressure was 202/96 mmHg. Clinically, the patient did not have any symptoms of chest pain or chest discomfort during the testing or on recovery and the EKG did not show any significant ST or T-wave abnormalities concerning for ischemia. CONCLUSION: 1. Excellent exercise tolerance. 2. Normal EKG in response to exercise. 3. Essentially normal stress test for the patient. MMODL / IJN: [id number] /
--- NOTE | 2018-12-17 12:48 | ECHOF ---
Referral Reason:R94.31 abnormal EKG MEASUREMENTS -------- HEIGHT: 165.1 cm WEIGHT: 70.3 kg BP: RVIDd: 2.4 cm (< 3.3) IVSd: 1.0 cm (0.6 - 1.1) LVIDd: 4.7 cm (3.9 - 5.3) LVPWd: 1.3 cm (0.6 - 1.1) IVSs: 1.5 cm LVIDs: 3.9 cm LVPWs: 1.1 cm LA Diam: 3.1 cm (2.7 - 3.8) Ao Diam: 2.6 cm (2.0 - 3.7) AV Cusp: 1.9 cm (1.5 - 2.6) LA Diam: 4.0 cm (2.7 - 3.8) MV EXCURSION: 16.312 mm (> 18.000) MV EF SLOPE: 68 mm/s (70 - 150) EPSS: 0.6 cm MV E Nithin: 0.49 m/s MV DecT: 190 ms MV A Nithin: 0.57 m/s MV E/A Ratio: 0.86 RAP: 5.00 mmHg RVSP: 29.66 mmHg FINDINGS -------- Sinus rhythm. This was a technically good study. LV size, wall thickness and systolic function are normal, with an EF greater than 55%. The left carlo tricular size is normal. The right ventricle is normal in size. The left atrial size is normal. Normal LA size by volume 22+/-6 ml/m2. The right atrial size is normal. The aortic valve is trileaflet, and appears structurally normal. No aortic stenosis or regurgitation. Mild mitral regurgitation is present. Mild tricuspid regurgitation present. There is no evidence of pulmonary hypertension. The right v entricular systolic pressure, as measured by Doppler, is 29.66mmHg. There is no pulmonic regurgitation present. The aortic root size is normal. There is no pericardial effusion. CONCLUSIONS -------- 1. Sinus rhythm. 2. This was a technically good study. 3. LV size, wall thickness and systolic function are normal, with an EF greater than 55%. 4. The left ventricular size is normal. 5. The right ventricle is normal in size. 6. The left atrial size is normal. 7. Normal LA size by volume 22+/-6 ml/m2. 8. The right atrial size is normal. 9. The aortic valve is trileaflet, and appears structurally normal. No aortic stenosis or regurgitati on. 10. Mild mitral regurgitation is present. 11. Mild tricuspid regurgitation present. 12. There is no evidence of pulmonary hypertension. 13. The right ventricular systolic pressure, as measured by Doppler, is 29.66mmHg. 14. There is no pulmonic regurgitation present. 15. The aortic root size is normal. 16. There is no pericardial effusion. CYTOLOGY LABORATORY MANAGER: Rebeca Bowman RDCS
== END | disposition home or self-care (01) ==
LOC: RADUSMAIN 07:37
PROVIDERS: ATTEND Family Medicine
DX: I08.1 Rheumatic disorders of both mitral and tricuspid valves (principal); R74.8 Abnormal levels of other serum enzymes; R94.31 Abnormal electrocardiogram [ECG] [EKG]
CPT/HCPCS: 76700; 93017; 93306

== ENCOUNTER → 2019-02-08 | Outpatient (CLI) | payer OTHER ==
--- NOTE | 2019-02-08 10:10 | XR ---
EXAMINATION TYPE: XR cervical spine comp DATE OF EXAM: 02/08/2019 COMPARISON: NONE HISTORY: Pain TECHNIQUE: Four views are submitted. FINDINGS: The odontoid is intact. There are no compression deformities. The prevertebral soft tissue structur es are within normal limits. Hypertrophic change and space narrowing C5-6 and C6-C7. Loss of normal cervical lordosis. Foraminal encroachment C5-C6 on the right and C4-C5 on the left. Foraminal encroac hment C6-C7 on the left IMPRESSION: 1. Degenerative disc disease with suspected foraminal encroachment recommend follow-up MRI.
--- NOTE | 2019-02-08 10:12 | XR ---
EXAMINATION TYPE: XR thoracic spine complete DATE OF EXAM: 02/08/2019 COMPARISON: NONE HISTORY: Pain Alignment is anatomic. There is no compression deformities. Vertebral body height and disc interspa nahum are maintained. Slight curvature the spine with multilevel hypertrophic changes. Degenerative ch anges lower cervical spine. IMPRESSION: 1. Mild multilevel hypertrophic changes. Correlate with MRI as clinically warranted..
== END | disposition home or self-care (01) ==
LOC: RADXRMAIN 09:34
PROVIDERS: ATTEND Physician Assistant
DX: M50.30 Other cervical disc degeneration, unspecified cervical region (principal); M89.38 Hypertrophy of bone, other site
CPT/HCPCS: 72050; 72072

== ENCOUNTER → 2019-03-07 | Outpatient (CLI) | payer OTHER ==
--- NOTE | 2019-03-17 08:33 | MM ---
Reason for exam: additional evaluation requested from prior study. Last mammogram was performed 4 years and 10 months ago. Physical Findings: Nurse Summary: 0.5cm nodule in the left breast at 2 o'clock (nurse TM). [facility] Mammo w CAD FRANCISCO Bilateral CC and MLO view(s) were taken. Prior study comparison: May 18, 2014, mammogram, performed at [place]. The breast tissue is heterogeneously dense. This may lower the sensitivity of mammography. Benign appearing bilateral calcifications. No suspicious abnormality. These results were verbally communicated with the patient and result sheet given to the patient on 03/16/19. ASSESSMENT: Incomplete: need additional imaging evaluation, BI-RAD 0 RECOMMENDATION: Ultrasound of the left breast. (palpable)
== END | disposition home or self-care (01) ==
LOC: RADMAMWWP 14:29
PROVIDERS: ATTEND Family Medicine
DX: N63.21 Unspecified lump in the left breast, upper outer quadrant (principal)
CPT/HCPCS: 77066

== ENCOUNTER → 2019-04-01 | Outpatient (CLI) | payer OTHER ==
--- NOTE | 2019-04-14 14:54 | USB ---
Reason for exam: clinical finding. US Breast Limited LT Left limited breast ultrasound including focal area of concern, retroareolar and axilla demonstrates no cystic or solid lesion seen. These results were verbally communicated with the patient and result sheet given to the patient on 04/01/19. ASSESSMENT: Negative, BI-RAD 1 RECOMMENDATION: Routine screening mammogram of both breasts in 1 year. Manage patient on a clinical basis.
== END | disposition home or self-care (01) ==
LOC: RADUSWWP 14:50
PROVIDERS: ATTEND Family Medicine
DX: R92.8 Other abnormal and inconclusive findings on diagnostic imaging of breast (principal)

== ENCOUNTER → 2019-05-20 | Outpatient (CLI) | payer OTHER ==
--- NOTE | 2019-05-20 15:34 | XR ---
Left elbow HISTORY: Trauma and pain 3 views of the left elbow There is arthropathy change present. Bone mineralization and alignment are maintained. No evident guillermo nt effusion. IMPRESSION: No acute fracture or dislocation evident. Follow-up as indicated if occult fracture is jaime spected clinically.
== END | disposition home or self-care (01) ==
LOC: RADXRMAIN 14:56
PROVIDERS: ATTEND Nurse Practitioner Family
DX: S59.902A Unspecified injury of left elbow, initial encounter (principal)

== ENCOUNTER 2019-06-16 15:32 | Emergency (ER) | payer OTHER ==
[2019-06-16 15:43] VITALS: TEMP 97.8
--- NOTE | 2019-06-16 15:56 | ED ---
General Adult HPI - General Chief complaint: Neuro Symptoms/Deficit Stated complaint: headache Time Seen by Provider: 06/16/19 15:34 Source: patient Mode of arrival: ambulatory Limitations: no limitations, language barrier - History of Present Illness Initial comments: Dictation was produced using [employer] dictation software. please excuse any gramma tical, word or spelling errors. Chief Complaint: 43-year-old female with past medical history of asthma, diabetes, headache, vertigo presents with abnormal MRI. History of Present Illness: 43-year-old female she had an MRI performed yesterday for evaluation of vertigo and headache. She was called and told to follow up in her neurologist's office today. Her neurologist Dr. Augustin. She had her blood pressure measured is found to be high. She was transferred to the emergency department via EMS for concerns of intracranial aneurysm. Patient states she had a headache that started 4 hours prior to arrival. She has had headaches like this frequently. Patient states her headache is mild. It is typical of her usual headaches. She is told to come to the emergency department for concerns of impending aneurysm rupture. She does have a history of high blood pressure. She is told that if she has an emergency department she does have intracranial bleed. She states that the headache is located to the occipital region. The ROS documented in this emergency department record has been reviewed and confirmed by me. Those systems with pertinent positive or negative responses have been documented in the HPI. All other systems are other negative and/or noncontributory. PHYSICAL EXAM: General Impression: Alert and oriented x3, not in acute distress HEENT: Normocephalic atraumatic, extra-ocular movements intact, pupils equal and reactive to light bilaterally, mucous membranes moist. Cardiovascular: Heart regular rate and rhythm, S1&S2 audible, no murmurs, rubs or gallops Chest: Lungs clear to auscultation bilaterally, no rhonchi, no wheeze, no rales Abdomen: Bowel sounds present, abdomen soft, non-tender, non-distended, no organomegaly Musculoskeletal: Pulses present and equal in all extremities, no peripheral edema Motor: no focal deficits noted Neurological: CN II-XII grossly intact, no focal motor or sensory deficits noted, negative Kernig's, negative Brudzinski's Skin: Intact with no visualized rashes Psych: Anxious ED course: 43-year-old female presents from neurologist office for intracranial aneurysm. Patient presents with radiology read and MRI MRA discs. Patient has a 3 x 3 mm eccentric aneurysm of the right lateral margin 8 segmented of the anterior cerebral artery. Clinically patient does not have any symptoms to suggest ruptured intracranial aneurysm. Vital signs upon arrival shows blood pressure 161/106, rest of vital signs within acceptable limits. His admissions benign. Patient is well-appearing. Laboratory evaluation obtained. CBC, coag panel, metabolic panel is unremarkable. CT of the brain was performed approximately 3-3 Hours after the onset of her symptoms. There is no signs of bleeding. Radiology however did make a comment that there is a 6 mm nodular prominence of the region of the anterior communicating artery. There is no findings of lead. No other acute intracranial abnormality seen. Patient reevaluated bedside with stable medical condition. She states that her headache is very mild typical for her usual headaches. Chest x-ray is unremarkable. Discussed patient case with Dr. Oviedo who is recommending that patient be discharged with tobacco cessation counseling, prescription for blood pressure medication. Patient's medications were reviewed. She is currently on lisinopril. She was given metoprolol for adequate blood pressure control. Patient given strict return precautions. She is warned of symptoms of subarachnoid hemorrhage. She is told to seek medical attention immediately if she develops neurologic symptoms, thunderclap headache. Otherwise she is cleared for discharge. Patient is understandable and agreeable to plan. She is given referral to neuro endovascular Dr. Oviedo to follow-up in his clinic. EKG interpretation: Ventricular rate 64, normal sinus rhythm,. 144, QRS 76, QTC 455. No UT prolongation, no QTC prolongation, diffuse T-wave inversions in the lateral leads.. No EKG for comparison. Overall, this EKG is nonspecific - Related Data Home Medications Medication Instructions Recorded Confirmed Albuterol Sulfate [Albuterol 2 puff INHALATION RT-Q12H 08/11/18 08/11/18 Sulfate Hfa] Lisinopril 40 mg PO DAILY 08/11/18 08/11/18 Ranitidine HCl [Zantac] 150 mg PO DAILY 08/11/18 08/11/18 metFORMIN HCL [Glucophage] 500 mg PO BID 08/11/18 08/11/18 Previous Rx's Medication Instructions Recorded Metoprolol Succinate [Toprol XL] 50 mg PO DAILY 14 Days #14 tab 06/16/19 Allergies Allergy/AdvReac Type Severity Reaction Status Date / Time adhesive Allergy Rash/Hives Verified 08/11/18 14:11 latex Allergy Rash/Hives Verified 08/11/18 14:11 Review of Systems ROS Statement: Those systems with pertinent positive or pertinent negative responses have been documented in the HPI. ROS Other: All systems not noted in ROS Statement are negative. Past Medical History Past Medical History: Atrial Fibrillation, Asthma, COPD, Diabetes Mellitus, Hypertension Additional Past Medical History / Comment(s): divirticulitis, crohns, kidney stones, 3X3 mm brain anuerysm, History of Any Multi-Drug Resistant Organisms: C-DIFF Date of last positivie culture/infection: 2016 MDRO Source:: stool Past Surgical History: Orthopedic Surgery, Tubal Ligation Additional Past Surgical History / Comment(s): uterine ablasion Past Anesthesia/Blood Transfusion Reactions: No Reported Reaction Past Psychological History: Depression Smoking Status: Current every day smoker Past Alcohol Use History: Daily Past Drug Use History: Marijuana - Past Family History Mother Family Medical History: COPD Father Family Medical History: Cancer, COPD General Exam Limitations: no limitations, language barrier Course Vital Signs 06/16/19 06/16/19 06/16/19 15:40 15:49 16:04 Temperature 97.8 F Pulse Rate 77 78 94 Respiratory 18 18 18 Rate Blood Pressure 161/106 168/104 162/98 O2 Sat by Pulse 98 99 98 Oximetry 06/16/19 06/16/19 06/16/19 16:19 16:36 17:15 Temperature Pulse Rate 92 86 70 Respiratory 18 18 16 Rate Blood Pressure 174/110 159/108 167/101 O2 Sat by Pulse 98 94 L 95 Oximetry Medical Decision Making - Lab Data Result diagrams: 06/16/19 15:44 06/16/19 15:44 Lab Results 06/16/19 06/16/19 06/16/19 Range/Units 15:44 15:44 15:44 WBC 4.9 (3.8-10.6) k/uL RBC 4.23 (3.80-5.40) m/uL Hgb 15.4 (11.4-16.0) gm/dL Hct 44.6 (34.0-46.0) % MCV 105.4 H (80.0-100.0) fL MCH 36.5 H (25.0-35.0) pg MCHC 34.6 (31.0-37.0) g/dL RDW 12.2 (11.5-15.5) % Plt Count 287 (150-450) k/uL Neutrophils % 56 % Lymphocytes % 33 % Monocytes % 7 % Eosinophils % 1 % Basophils % 0 % Neutrophils # 2.8 (1.3-7.7) k/uL Lymphocytes # 1.6 (1.0-4.8) k/uL Monocytes # 0.4 (0-1.0) k/uL Eosinophils # 0.0 (0-0.7) k/uL Basophils # 0.0 (0-0.2) k/uL Macrocytosis Slight PT 10.3 (9.0-12.0) sec INR 1.0 (<1.2) APTT 23.7 (22.0-30.0) sec Sodium 135 L (137-145) mmol/L Potassium 3.7 (3.5-5.1) mmol/L Chloride 100 (98-107) mmol/L Carbon Dioxide 26 (22-30) mmol/L Anion Gap 9 mmol/L BUN 12 (7-17) mg/dL Creatinine 0.55 (0.52-1.04) mg/dL Est GFR (CKD-EPI)AfAm >90 (>60 ml/min/1.73 sqM) Est GFR (CKD-EPI)NonAf >90 (>60 ml/min/1.73 sqM) Glucose 243 H (74-99) mg/dL Calcium 9.6 (8.4-10.2) mg/dL Blood Type Blood Type Recheck Bld Type Recheck Status Antibody Screen Spec Expiration Date 06/16/19 Range/Units 16:00 WBC (3.8-10.6) k/uL RBC (3.80-5.40) m/uL Hgb (11.4-16.0) gm/dL Hct (34.0-46.0) % MCV (80.0-100.0) fL MCH (25.0-35.0) pg MCHC (31.0-37.0) g/dL RDW (11.5-15.5) % Plt Count (150-450) k/uL Neutrophils % % Lymphocytes % % Monocytes % % Eosinophils % % Basophils % % Neutrophils # (1.3-7.7) k/uL Lymphocytes # (1.0-4.8) k/uL Monocytes # (0-1.0) k/uL Eosinophils # (0-0.7) k/uL Basophils # (0-0.2) k/uL Macrocytosis PT (9.0-12.0) sec INR (<1.2) APTT (22.0-30.0) sec Sodium (137-145) mmol/L Potassium (3.5-5.1) mmol/L Chloride (98-107) mmol/L Carbon Dioxide (22-30) mmol/L Anion Gap mmol/L BUN (7-17) mg/dL Creatinine (0.52-1.04) mg/dL Est GFR (CKD-EPI)AfAm (>60 ml/min/1.73 sqM) Est GFR (CKD-EPI)NonAf (>60 ml/min/1.73 sqM) Glucose (74-99) mg/dL Calcium (8.4-10.2) mg/dL Blood Type AB Positive Blood Type Recheck No Previous Record Bld Type Recheck Status CABO Indicated Antibody Screen NEGATIVE Spec Expiration Date 06/19/2019 - 2299 Disposition Clinical Impression: Intracranial aneurysm Disposition: HOME SELF-CARE Condition: Good Instructions (If sedation given, give patient instructions): Nonruptured Cerebral Aneurysm (DC) Additional Instructions: Metoprolol was added to your blood pressure medications for adequate blood pressure control. Please follow-up with Dr. Oviedo as soon as possible. Your evaluated today for intracranial aneurysm. There is no signs of bleeding however there is always a chance that aneurysm may start bleeding. your aneurysm was observed to be 3 x 3 mm. Please seek medical attention with any neurologic deficits, severe thunderclap headache or syncope. Please quit smoking. Prescriptions: Metoprolol Succinate [Toprol XL] 50 mg PO DAILY 14 Days #14 tab Is patient prescribed a controlled substance at d/c from ED?: No Referrals: Home Pineda MD [STAFF PHYSICIAN] - 1-2 days Time of Disposition: 17:17
[2019-06-16 16:07] LABS: Basophils % (A) 0 %; Eosinophils % (A) 1 %; HCT 44.6 % (34.0-46.0); HGB 15.4 gm/dL (11.4-16.0); Lymphocytes # (A) 1.6 k/uL (1.0-4.8); Lymphocytes % (A) 33 %; MCH 36.5 pg (25.0-35.0); MCHC 34.6 g/dL (31.0-37.0); MCV 105.4 fL (80.0-100.0); Macrocytosis Slight; Mean Platelet Volume 7.5; Monocytes # (A) 0.4 k/uL (0-1.0); Monocytes % (A) 7 %; Neutrophils # (A) 2.8 k/uL (1.3-7.7); Neutrophils % (A) 56 %; Platelet Count 287 k/uL (150-450); RBC 4.23 m/uL (3.80-5.40); RDW 12.2 % (11.5-15.5); WBC 4.9 k/uL (3.8-10.6)
--- NOTE | 2019-06-16 16:09 | CT ---
EXAMINATION TYPE: CT brain wo con DATE OF EXAM: 06/16/2019 COMPARISON: None HISTORY: 43-year-old female headache, MRI at [facility] showed aneurysm. Headache. TECHNIQUE: Examination was done in axial plane without intravenous contrast. Coronal and sagittal r econstructions performed. CT DLP: 1096.4 mGycm Automated exposure control for dose reduction was used. FINDINGS: There is no evidence of acute intracranial hemorrhage, acute ischemic changes, mass, mass-effect, or extra-axial fluid collection. There is no effacement of cerebral sulci or basal subarachnoid cister ns. There is no hydrocephalus. There is no midline shift. Worley-white matter distinction is preserv ed. Slight 6 mm nodular prominence in the region of the intercommunicating artery, axial image 17 and cor onal image 25. Paranasal sinuses and mastoid air cells well pneumatized. Orbits and globes are intact. IMPRESSION: 1. 6 mm nodular prominence in the region of the anterior communicator artery. Correlate as to the loc ation of the intracranial aneurysm seen on outside MRI. Follow-up as indicated. 2. Otherwise, no acute intracranial abnormality seen.
[2019-06-16 16:13] LABS: African American GFR (CKD) >90 (>60 ml/min/1.73 sqM); Anion Gap 9 mmol/L; Blood Urea Nitrogen 12 mg/dL (7-17); Calcium 9.6 mg/dL (8.4-10.2); Carbon Dioxide 26 mmol/L (22-30); Chloride 100 mmol/L (98-107); Glucose 243 mg/dL (74-99); Non-African American GFR(CKD) >90 (>60 ml/min/1.73 sqM); Potassium 3.7 mmol/L (3.5-5.1); Sodium 135 mmol/L (137-145)
[2019-06-16 16:17] LABS: Partial Thromboplastin Time 23.7 sec (22.0-30.0); Prothrombin Time 10.3 sec (9.0-12.0)
--- NOTE | 2019-06-16 16:32 | XR ---
EXAMINATION TYPE: XR chest 1V portable DATE OF EXAM: 06/16/2019 COMPARISON: NONE HISTORY: Headache and weakness. TECHNIQUE: Single AP portable frontal upright view of the chest is obtained. FINDINGS: Overlying EKG leads are present. There is no focal air space opacity, pleural effusion, or pneumothorax seen. The cardiac silhouette size is upper limits of normal. The osseous structures a re intact. IMPRESSION: No acute process.
[2019-06-16 17:15] VITALS: BP 167/101; PULSE 70; RESP 16
[2019-06-16] MEDS ORDERED: METOPROLOL SUCCINATE (ER) 50 MG TAB.ER.24H PO STA (17:18)
== END 2019-06-16 17:46 | disposition home or self-care (01) ==
LOC: EC 15:32
DX: I67.1 Cerebral aneurysm, nonruptured (principal); I10 Essential (primary) hypertension; I48.91 Unspecified atrial fibrillation; J44.9 Chronic obstructive pulmonary disease, unspecified; E11.9 Type 2 diabetes mellitus without complications; F17.200 Nicotine dependence, unspecified, uncomplicated; Z79.51 Long term (current) use of inhaled steroids; Z79.899 Other long term (current) drug therapy; Z79.84 Long term (current) use of oral hypoglycemic drugs; Z87.19 Personal history of other diseases of the digestive system; Z91.048 Other nonmedicinal substance allergy status; Z91.040 Latex allergy status
CPT/HCPCS: 36415; 70450; 71045; 80048; 85025; 85610; 85730; 86850; 86900; 86901; 93005; 99285

== ENCOUNTER 2019-12-07 16:34 | Emergency (ER) | payer OTHER ==
[2019-12-07 16:41] VITALS: TEMP 98.8
[2019-12-07] MEDS ORDERED: RX INFO: IV CONTRAST WAS GIVEN 1 EACH MISC MISCELLANE PRN (17:07)
[2019-12-07] MEDS ORDERED: LIDOCAINE 5% PATCH TOPICAL STA (17:08)
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
[2019-12-07 17:51] LABS: African American GFR (CKD) >90 (>60 ml/min/1.73 sqM); Anion Gap 10 mmol/L; Blood Urea Nitrogen 12 mg/dL (7-17); Calcium 9.5 mg/dL (8.4-10.2); Carbon Dioxide 18 mmol/L (22-30); Chloride 111 mmol/L (98-107); Glucose 154 mg/dL (74-99); Non-African American GFR(CKD) >90 (>60 ml/min/1.73 sqM); Potassium 4.4 mmol/L (3.5-5.1); Sodium 139 mmol/L (137-145)
[2019-12-07] MEDS ORDERED: oxyCODONE-APAP 10-325MG 1 EACH TAB PO STA (18:38)
--- NOTE | 2019-12-07 19:10 | CT ---
EXAMINATION TYPE: CT brain gaye wo con DATE OF EXAM: 12/07/2019 COMPARISON: 06/16/2019 HISTORY: pt fall, known aneurysm CT DLP: 1513.5 mGycm, Automated exposure control for dose reduction was used. CONTRAST: Patient injected with 0 mL of Isovue 300. CT of the brain is performed utilizing 3 mm thick sections through the posterior fossa and 3 mm thick sections through the remaining calvarium. Study is performed within 24 hours of arrival to the hospital. No abnormal hyperdensity is present to suggest an acute intracranial hemorrhage. No suspicious subar achnoid hemorrhage is evident. The subtle asymmetry along the medial inferior right frontal lobe jorge a ins present No acute infarcts are evident. Ventricles and sulci are appropriate for the patient age. Paranasal sinuses and mastoid air cells within the lgems-su-ndrt are clear. IMPRESSIONS: 1. No acute intracranial process. No hemorrhage is evident. No suspicious changes to suggest acute ru ptured aneurysm is evident. MRA can reevaluate the patient's known aneurysm. CT cervical spine. COMPARISON: None CT of the cervical spine is performed in the axial plane at 2 mm thick sections. Reconstructed image s in the coronal, and sagittal plane are reviewed on the computer. No acute fractures are evident. Scoliosis present through the cervical spine. There is kyphosis in the upper cervical spine. Disc heights are preserved. Vertebral body heights are preserved. No spinal canal stenosis is evident. No neural foraminal stenosis is evident. IMPRESSIONS: 1. Scoliosis and kyphosis.. No acute osseous abnormality evident.
--- NOTE | 2019-12-07 19:12 | CT ---
EXAMINATION TYPE: CT chest w con DATE OF EXAM: 12/07/2019 COMPARISON: None HISTORY: pt fall CT DLP: 715.8 mGycm, Automated exposure control for dose reduction was used. CONTRAST: Performed injected with 100 mL of Isovue 300. TECHNIQUE: Axial images were obtained at 5 mm thick sections. Reconstructed images are reviewed on [employer] computer in the coronal plane. FINDINGS: Portion of the thyroid visualized is normal. No suspicious lung nodules or focal infiltrates are present. No pneumothorax is evident. No enlarged mediastinal or hilar adenopathy is evident. The ascending aorta diameter at the level o f the main pulmonary artery is 2.9 cm. The main pulmonary artery diameter at the bifurcation is 2.[address] sections are obtained through the upper abdomen. Abdomen is essentially unremarkable. IMPRESSIONS: 1. Normal Chest CT. No acute posttraumatic changes.
[2019-12-07] MEDS ORDERED: ONDANSETRON 4 MG ODT STARTER PACK 2 TAB BTL PO STA (20:05)
[2019-12-07] MEDS ORDERED: ACET/COD 300 MG/30 MG STARTER PACK 6 TAB BTL PO STA (20:05)
[2019-12-07 20:23] VITALS: BP 180/116; PULSE 68; RESP 16
== END 2019-12-07 20:20 | disposition home or self-care (01) ==
LOC: EC 16:34
DX: S16.1XXA Strain of muscle, fascia and tendon at neck level, initial encounter (principal); J44.9 Chronic obstructive pulmonary disease, unspecified; E11.9 Type 2 diabetes mellitus without complications; I10 Essential (primary) hypertension; F17.200 Nicotine dependence, unspecified, uncomplicated; Z79.51 Long term (current) use of inhaled steroids; Z79.84 Long term (current) use of oral hypoglycemic drugs; Z79.899 Other long term (current) drug therapy; Z91.040 Latex allergy status; Z91.048 Other nonmedicinal substance allergy status; W01.0XXA Fall on same level from slipping, tripping and stumbling without subsequent striking against object, initial encounter; Y92.814 Boat as the place of occurrence of the external cause
CPT/HCPCS: 36415; 80048; 72125; 70450; 71260; 99284; S0119; Q9967

== ENCOUNTER → 2020-03-20 | Outpatient (CLI) | payer OTHER | END | disposition home or self-care (01) | LOC: LABWHC1 16:27 | PROVIDERS: ATTEND Family Medicine | DX: R50.9 Fever, unspecified (principal); R19.7 Diarrhea, unspecified | CPT/HCPCS: U0003; C9803 ==

== ENCOUNTER 2020-04-02 18:04 | Emergency (ER) | payer OTHER ==
[2020-04-02] MEDS ORDERED: SODIUM CHLORIDE 0.9% 1,000 ML IV STA ×2 (19:10→19:27)
[2020-04-02] MEDS ORDERED: HYDROmorphone 0.5 MG/0.5 ML SYRINGE IVP STA ×2 (19:27→20:44)
[2020-04-02] MEDS ORDERED: ONDANSETRON 4 MG/2 ML VIAL IVP STA (19:27)
[2020-04-02 19:32] LABS: Basophils # (A) 0.1 k/uL (0-0.2); Basophils % (A) 1 %; Eosinophils # (A) 0.1 k/uL (0-0.7); Eosinophils % (A) 1 %; HCT 48.2 % (34.0-46.0); HGB 17.3 gm/dL (11.4-16.0); Lymphocytes # (A) 1.7 k/uL (1.0-4.8); Lymphocytes % (A) 28 %; MCH 37.7 pg (25.0-35.0); MCHC 35.9 g/dL (31.0-37.0); MCV 104.9 fL (80.0-100.0); Macrocytosis Slight; Mean Platelet Volume 7.8; Monocytes # (A) 0.4 k/uL (0-1.0); Monocytes % (A) 7 %; Neutrophils # (A) 3.6 k/uL (1.3-7.7); Neutrophils % (A) 61 %; Platelet Count 258 k/uL (150-450); RBC 4.59 m/uL (3.80-5.40); RDW 12.3 % (11.5-15.5)
--- NOTE | 2020-04-02 19:34 | ED ---
General Adult HPI - General Chief complaint: Abdominal Pain Stated complaint: diverticulitis flare Time Seen by Provider: 04/02/20 18:55 Source: patient, RN notes reviewed Mode of arrival: ambulatory Limitations: no limitations - History of Present Illness Initial comments: 44-year-old female with a past medical history of diverticulitis, Crohn's disea se, kidney stones, diabetes mellitus, atrial fibrillation, asthma, COPD presents to the emergency room for a chief complaint of abdominal pain. Patient reports she has had abdominal pain for a week but has been too afraid to come into the ER. Patient states it is in her lower abdomen. She admits to nausea and vomiting. States every time she was to the bathroom she has diarrhea. She denies fevers or chills. Patient also has slight lower back pain that worsens with movement. Patient tested negative for Covid 3 days ago. Patient has no other complaints at this time including shortness of breath, chest pain, headache, or visual changes. - Related Data Home Medications Medication Instructions Recorded Confirmed Aspirin EC [Ecotrin Low Dose] 81 mg PO DAILY 12/07/19 04/02/20 Ibuprofen 800 mg PO BID PRN 12/07/19 04/02/20 Insulin Glargine,Hum.rec.anlog 30 unit SQ HS 12/07/19 04/02/20 [Basaglar H[place] U-100] Losartan-Hctz 50-12.5 mg [Hyzaar 1 tab PO DAILY 12/07/19 04/02/20 50-12.5] Omeprazole 40 mg PO DAILY 12/07/19 04/02/20 amLODIPine [Norvasc] 5 mg PO DAILY 12/07/19 04/02/20 risperiDONE [RisperDAL] 2 mg PO HS PRN 12/07/19 04/02/20 Dicyclomine HCl 20 mg PO BID PRN 04/02/20 04/02/20 Pregabalin [Lyrica] 75 mg PO HS 04/02/20 04/02/20 Previous Rx's Medication Instructions Recorded Dicyclomine [Bentyl] 20 mg PO TID PRN #20 tablet 04/02/20 Ondansetron [Zofran ODT] 4 mg PO Q8HR PRN #15 tab 04/02/20 Allergies Allergy/AdvReac Type Severity Reaction Status Date / Time adhesive Allergy Rash/Hives Verified 04/02/20 21:45 latex Allergy Rash/Hives Verified 04/02/20 21:45 Review of Systems ROS Statement: Those systems with pertinent positive or pertinent negative responses have been documented in the HPI. ROS Other: All systems not noted in ROS Statement are negative. Past Medical History Past Medical History: Atrial Fibrillation, Asthma, COPD, Diabetes Mellitus, Hypertension Additional Past Medical History / Comment(s): divirticulitis, crohns, kidney stones, 3X3 mm brain anuerysm, History of Any Multi-Drug Resistant Organisms: None Reported, C-DIFF Date of last positivie culture/infection: 2015 MDRO Source:: stool Past Surgical History: Orthopedic Surgery, Tubal Ligation Additional Past Surgical History / Comment(s): uterine ablasion Past Anesthesia/Blood Transfusion Reactions: No Reported Reaction Past Psychological History: Depression Smoking Status: Current some day smoker Past Alcohol Use History: None Reported Past Drug Use History: Marijuana - Past Family History Mother Family Medical History: COPD Father Family Medical History: Cancer, COPD General Exam Limitations: no limitations General appearance: alert, in no apparent distress Head exam: Present: atraumatic, normocephalic, normal inspection Eye exam: Present: normal appearance, PERRL, EOMI. Absent: scleral icterus, conjunctival injection, periorbital swelling ENT exam: Present: normal exam, mucous membranes moist Neck exam: Present: normal inspection, full ROM. Absent: tenderness, meningismus, lymphadenopathy Respiratory exam: Present: normal lung sounds bilaterally. Absent: respiratory distress, wheezes, rales, rhonchi, stridor Cardiovascular Exam: Present: regular rate, normal rhythm, normal heart sounds. Absent: systolic murmur, diastolic murmur, rubs, gallop, clicks GI/Abdominal exam: Present: soft, tenderness (suprapubic tenderness), normal bowel sounds. Absent: distended, guarding, rebound, rigid Back exam: Absent: CVA tenderness (R), CVA tenderness (L) Course Vital Signs 04/02/20 04/02/20 04/02/20 18:29 20:45 20:57 Temperature 99.5 F Pulse Rate 63 78 Respiratory 20 18 Rate Blood Pressure 176/124 158/107 156/100 O2 Sat by Pulse 95 Oximetry Medical Decision Making - Medical Decision Making Vitals are stable. Physical exam does reveal minimal suprapubic tenderness. No CVA tenderness. She has had nausea vomiting and diarrhea for a week. States she she has diarrhea. Denies hematochezia or melena. CBC unremarkable. She does have some evidence of dehydration with hemoconcentration. CMP unremarkable. Urinalysis does show 4+ glucose however patient does have a history of diabetes. Abdomen and pelvis shows sigmoid diverticulosis without diverticulitis. Patient does have a 3.8 cm uterine fibroid. No adverse change compared to old exam. Patient was given pain medication that did help with her symptoms. Given nausea vomiting diarrhea she likely has a gastroenteritis. At this time patient be discharged home to follow up with primary care. If she develops any worsening symptoms such as fevers or worsening abdominal pain she will return to the emergency room. - Lab Data Result diagrams: 04/02/20 19:25 04/02/20 20:12 Lab Results 04/02/20 04/02/20 04/02/20 Range/Units 19:25 19:25 19:25 WBC 6.0 (3.8-10.6) k/uL RBC 4.59 (3.80-5.40) m/uL Hgb 17.3 H (11.4-16.0) gm/dL Hct 48.2 H (34.0-46.0) % MCV 104.9 H (80.0-100.0) fL MCH 37.7 H (25.0-35.0) pg MCHC 35.9 (31.0-37.0) g/dL RDW 12.3 (11.5-15.5) % Plt Count 258 (150-450) k/uL MPV 7.8 Neutrophils % 61 % Lymphocytes % 28 % Monocytes % 7 % Eosinophils % 1 % Basophils % 1 % Neutrophils # 3.6 (1.3-7.7) k/uL Lymphocytes # 1.7 (1.0-4.8) k/uL Monocytes # 0.4 (0-1.0) k/uL Eosinophils # 0.1 (0-0.7) k/uL Basophils # 0.1 (0-0.2) k/uL Macrocytosis Slight Sodium (137-145) mmol/L Potassium (3.5-5.1) mmol/L Chloride (98-107) mmol/L Carbon Dioxide (22-30) mmol/L Anion Gap mmol/L BUN (7-17) mg/dL Creatinine (0.52-1.04) mg/dL Est GFR (CKD-EPI)AfAm (>60 ml/min/1.73 sqM) Est GFR (CKD-EPI)NonAf (>60 ml/min/1.73 sqM) Glucose (74-99) mg/dL Calcium (8.4-10.2) mg/dL Total Bilirubin (0.2-1.3) mg/dL AST (14-36) U/L ALT (4-34) U/L Alkaline Phosphatase (38-126) U/L Total Protein (6.3-8.2) g/dL Albumin (3.5-5.0) g/dL Amylase (30-110) U/L Lipase (23-300) U/L Urine Color Light Yellow Urine Appearance Clear (Clear) Urine pH 6.5 (5.0-8.0) Ur Specific [place] 1.011 (1.001-1.035) Urine Protein Negative (Negative) Urine Glucose (UA) 4+ H (Negative) Urine Ketones Negative (Negative) Urine Blood Negative (Negative) Urine Nitrite Negative (Negative) Urine Bilirubin Negative (Negative) Urine Urobilinogen <2.0 (<2.0) mg/dL Ur Leukocyte Esterase Negative (Negative) Urine HCG, Qual Not Detected (Not Detectd) 04/02/20 Range/Units 20:12 WBC (3.8-10.6) k/uL RBC (3.80-5.40) m/uL Hgb (11.4-16.0) gm/dL Hct (34.0-46.0) % MCV (80.0-100.0) fL MCH (25.0-35.0) pg MCHC (31.0-37.0) g/dL RDW (11.5-15.5) % Plt Count (150-450) k/uL MPV Neutrophils % % Lymphocytes % % Monocytes % % Eosinophils % % Basophils % % Neutrophils # (1.3-7.7) k/uL Lymphocytes # (1.0-4.8) k/uL Monocytes # (0-1.0) k/uL Eosinophils # (0-0.7) k/uL Basophils # (0-0.2) k/uL Macrocytosis Sodium 136 L (137-145) mmol/L Potassium 3.8 (3.5-5.1) mmol/L Chloride 105 (98-107) mmol/L Carbon Dioxide 25 (22-30) mmol/L Anion Gap 6 mmol/L BUN 13 (7-17) mg/dL Creatinine 0.67 (0.52-1.04) mg/dL Est GFR (CKD-EPI)AfAm >90 (>60 ml/min/1.73 sqM) Est GFR (CKD-EPI)NonAf >90 (>60 ml/min/1.73 sqM) Glucose 117 H (74-99) mg/dL Calcium 9.2 (8.4-10.2) mg/dL Total Bilirubin 0.7 (0.2-1.3) mg/dL AST 87 H (14-36) U/L ALT 85 H (4-34) U/L Alkaline Phosphatase 75 (38-126) U/L Total Protein 7.2 (6.3-8.2) g/dL Albumin 4.3 (3.5-5.0) g/dL Amylase 30 (30-110) U/L Lipase 219 (23-300) U/L Urine Color Urine Appearance (Clear) Urine pH (5.0-8.0) Ur Specific [place] (1.001-1.035) Urine Protein (Negative) Urine Glucose (UA) (Negative) Urine Ketones (Negative) Urine Blood (Negative) Urine Nitrite (Negative) Urine Bilirubin (Negative) Urine Urobilinogen (<2.0) mg/dL Ur Leukocyte Esterase (Negative) Urine HCG, Qual (Not Detectd) Disposition Clinical Impression: Diarrhea, Abdominal pain, Uterine fibroid Disposition: HOME SELF-CARE Condition: Good Instructions (If sedation given, give patient instructions): Abdominal Pain (ED) Additional Instructions: Please drink plenty of fluids. Take Bentyl as directed. Take Zofran as needed for nausea. Follow-up with your doctor in one to 2 days. If he develop worsening symptoms such as worsening abdominal pain or fevers return to the emergency room. Prescriptions: Dicyclomine [Bentyl] 20 mg PO TID PRN #20 tablet PRN Reason: abdominal pain Ondansetron [Zofran ODT] 4 mg PO Q8HR PRN #15 tab PRN Reason: Nausea Is patient prescribed a controlled substance at d/c from ED?: No Referrals: Brennon Chavez DO [Primary Care Provider] - 1-2 days Time of Disposition: 21:55
[2020-04-02 19:39] LABS: Appearance,Urine Clear (Clear); Bilirubin,Urine Negative (Negative); Blood,Urine Negative (Negative); Color,Urine Light Yellow; Glucose,Urine (UA) 4+ (Negative); Ketones,Urine Negative (Negative); Leukocyte Esterase,Urine Negative (Negative); Nitrite,Urine Negative (Negative); PH, Urine 6.5 (5.0-8.0); Protein,Urine Negative (Negative); Specific Gravity,Urine 1.011 (1.001-1.035); Urobilinogen,Urine <2.0 mg/dL (<2.0)
[2020-04-02 20:25] LABS: ALT 85 U/L (4-34); AST 87 U/L (14-36); African American GFR (CKD) >90 (>60 ml/min/1.73 sqM); Albumin 4.3 g/dL (3.5-5.0); Alkaline Phosphatase 75 U/L (38-126); Amylase 30 U/L (30-110); Anion Gap 6 mmol/L; Blood Urea Nitrogen 13 mg/dL (7-17); Calcium 9.2 mg/dL (8.4-10.2); Carbon Dioxide 25 mmol/L (22-30); Chloride 105 mmol/L (98-107); Glucose 117 mg/dL (74-99); Lipase 219 U/L (23-300); Non-African American GFR(CKD) >90 (>60 ml/min/1.73 sqM); Potassium 3.8 mmol/L (3.5-5.1); Sodium 136 mmol/L (137-145); Total Bilirubin 0.7 mg/dL (0.2-1.3); Total Protein 7.2 g/dL (6.3-8.2)
--- NOTE | 2020-04-02 21:37 | CT ---
EXAMINATION TYPE: CT abdomen pelvis w con DATE OF EXAM: 04/02/2020 COMPARISON: 08/11/2018 HISTORY: Abdominal and back pain, history of Crohn's. CT DLP: 973.5 mGycm Automated exposure control for dose reduction was used. CONTRAST: Performed with IV Contrast, patient injected with 100ml mL of Isovue 300. There is some mild atelectasis at the lung bases. Heart size is normal. There is no pericardial effus ion. Liver spleen stomach pancreas gallbladder appear normal. Bile ducts are not dilated. There is no adrenal mass. Kidneys show satisfactory contrast opacification. There is no hydronephrosi s. The ureters are not dilated. There is no retroperitoneal adenopathy. Appendix is posterior and bernie ears normal. Bladder distends smoothly. Uterus is anteverted. There is no free fluid in the pelvis. T here is no inguinal hernia. There is rounded 3.8 cm density on the right side of the uterine fundus t hat is probably a fibroid. Delayed images show normal renal excretion. There are multiple sigmoid diverticula. There is no diverticulitis. Lumbar vertebra have normal alignment. There is degenerative spur formation in the mid and lower lumb ar spine. There is no compression fracture. The bony pelvis is intact. IMPRESSION: There is sigmoid diverticulosis without diverticulitis. Uterine fibroid. No adverse change compared t o old exam.
[2020-04-02] MEDS ORDERED: DICYCLOMINE 10 MG/ML 2 ML AMP IM STA (21:59)
[2020-04-02 22:06] VITALS: BP 147/101; PULSE 67; RESP 16; TEMP 98.9
== END 2020-04-02 22:15 | disposition home or self-care (01) ==
LOC: EC 18:04
DX: D25.9 Leiomyoma of uterus, unspecified (principal); R19.7 Diarrhea, unspecified; K57.30 Diverticulosis of large intestine without perforation or abscess without bleeding; R11.2 Nausea with vomiting, unspecified; E86.0 Dehydration; I48.91 Unspecified atrial fibrillation; E11.9 Type 2 diabetes mellitus without complications; I10 Essential (primary) hypertension; Z79.4 Long term (current) use of insulin; Z79.82 Long term (current) use of aspirin; Z79.899 Other long term (current) drug therapy; Z91.040 Latex allergy status; Z91.048 Other nonmedicinal substance allergy status; Z87.19 Personal history of other diseases of the digestive system; Z87.442 Personal history of urinary calculi
CPT/HCPCS: 36415; 80053; 82150; 83690; 85025; 81003; 81025; 74177; 96372; 96374; 96375; 96376; 96361; J0500; J2405; J1170; Q9967; 99284

== ENCOUNTER 2020-08-16 16:53 | Emergency (ER) | payer OTHER ==
[2020-08-16 17:26] VITALS: RESP 18; TEMP 98.6
[2020-08-16 17:26] LABS: Glucose,Whole Blood 389 mg/dL (75-99)
[2020-08-16 17:53] LABS: Appearance,Urine Clear (Clear); Bilirubin,Urine Negative (Negative); Blood,Urine Negative (Negative); Color,Urine Light Yellow; Glucose,Urine (UA) 4+ (Negative); Ketones,Urine Negative (Negative); Leukocyte Esterase,Urine Negative (Negative); Nitrite,Urine Negative (Negative); PH, Urine 5.5 (5.0-8.0); Protein,Urine Negative (Negative); Urobilinogen,Urine <2.0 mg/dL (<2.0)
[2020-08-16] MEDS ORDERED: SODIUM CHLORIDE 0.9% 2,000 ML IV ONE (19:18)
[2020-08-16] MEDS ORDERED: MORPHINE SULFATE 4 MG/ML SYRINGE IVP STA (19:26)
[2020-08-16 19:27] LABS: Basophils % (A) 1 %; Eosinophils # (A) 0.1 k/uL (0-0.7); Eosinophils % (A) 1 %; HCT 45.3 % (34.0-46.0); HGB 16.3 gm/dL (11.4-16.0); Lymphocytes # (A) 2.3 k/uL (1.0-4.8); Lymphocytes % (A) 32 %; MCH 34.2 pg (25.0-35.0); MCHC 35.9 g/dL (31.0-37.0); MCV 95.3 fL (80.0-100.0); Mean Platelet Volume 8.2; Monocytes # (A) 0.6 k/uL (0-1.0); Monocytes % (A) 9 %; Neutrophils # (A) 4.1 k/uL (1.3-7.7); Neutrophils % (A) 57 %; Platelet Count 285 k/uL (150-450); RBC 4.76 m/uL (3.80-5.40); WBC 7.2 k/uL (3.8-10.6)
[2020-08-16 19:36] LABS: ALT 44 U/L (4-34); AST 33 U/L (14-36); African American GFR (CKD) >90 (>60 ml/min/1.73 sqM); Albumin 4.7 g/dL (3.5-5.0); Alkaline Phosphatase 103 U/L (38-126); Anion Gap 12 mmol/L; Blood Urea Nitrogen 11 mg/dL (7-17); Calcium 10.3 mg/dL (8.4-10.2); Carbon Dioxide 24 mmol/L (22-30); Chloride 100 mmol/L (98-107); Glucose 306 mg/dL (74-99); Lipase 284 U/L (23-300); Magnesium 2.1 mg/dL (1.6-2.3); Non-African American GFR(CKD) >90 (>60 ml/min/1.73 sqM); Potassium 4.3 mmol/L (3.5-5.1); Sodium 136 mmol/L (137-145); Total Bilirubin 0.5 mg/dL (0.2-1.3); Total Protein 7.8 g/dL (6.3-8.2)
--- NOTE | 2020-08-16 20:22 | CT ---
EXAMINATION TYPE: CT abdomen pelvis w con DATE OF EXAM: 08/16/2020 COMPARISON: 04/02/2020 HISTORY: Lower abdominal pain and high blood sugar. CT DLP: 1041.2 mGycm Automated exposure control for dose reduction was used. CONTRAST: Performed with IV Contrast, patient injected with 100ml mL of Isovue 300. There is mild subsegmental atelectasis at the lung bases. There is no pleural effusion. Heart size is normal. There is no pericardial effusion. Liver spleen stomach pancreas gallbladder appear normal. The bile ducts are not dilated. There is no adrenal mass. Kidneys show satisfactory contrast opacification. There is no hydronephrosi s. Ureters are not dilated. There is no retroperitoneal adenopathy. Delayed images show normal renal excretion. The bladder distends smoothly. There is no inguinal hernia. There are numerous diverticula in the sigmoid colon. There is no evidence of diverticulitis. Uterus is anteverted. There is bulging on the posterior wall of the uterine fundus consistent with fi broid. There are phleboliths in the pelvis. Lumbar vertebra have normal alignment. There is narrowing of the L3-4 L4-5 disc spaces with mild spurring. There is no compression fracture. The bony pelvis i s intact. The hip joints are intact. The appendix appears normal. There is no mesenteric edema. There is no ascites or free air. There is no bowel obstruction. IMPRESSION: There is some sigmoid diverticulosis without diverticulitis. No sign of acute abdomen and pelvis. Nor mal appendix. No adverse change compared to old exam. Minimal subsegmental atelectasis at the lung bases without change.
--- NOTE | 2020-08-16 20:48 | ED ---
Abdominal Pain HPI - General Chief Complaint: Abdominal Pain Stated Complaint: High Blood Sugar Source: patient Mode of arrival: ambulatory Limitations: no limitations - History of Present Illness Initial Comments: Patient is a 44-year-old female with past history of diabetes, COPD who presents emergency Department with reported suprapubic abdominal pain and high sugars. Patient reports that for the past 2 weeks she has had elevated blood sugars. She has been attempting to contact her primary care doctor however has had minimal success. She takes insulin at night and other oral medications. Reports that she was on metformin however primary care doctor for this. They increased her nighttime insulin from 30 units to 50 units. States she's been taking as directed however blood sugars continue to be in the 4 and 500s. She denies history of DKA. No fevers or chills. Denies cough or chest pain. Does admit to suprapubic abdominal pain. No dysuria, hematuria or difficulty voiding. Denies diarrhea or constipation. No black or bloody stools. No vaginal bleeding or discharge. 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 - Related Data Home Medications Medication Instructions Recorded Confirmed Aspirin EC [Ecotrin Low Dose] 81 mg PO DAILY 12/07/19 04/02/20 Ibuprofen 800 mg PO BID PRN 12/07/19 04/02/20 Insulin Glargine,Hum.rec.anlog 30 unit SQ HS 12/07/19 04/02/20 [Basaglar [place] U-100] Losartan-Hctz 50-12.5 mg [Hyzaar 1 tab PO DAILY 12/07/19 04/02/20 50-12.5] Omeprazole 40 mg PO DAILY 12/07/19 04/02/20 amLODIPine [Norvasc] 5 mg PO DAILY 12/07/19 04/02/20 risperiDONE [RisperDAL] 2 mg PO HS PRN 12/07/19 04/02/20 Dapagliflozin Propanediol [Farxiga] 10 mg PO DAILY 04/02/20 04/02/20 Dicyclomine HCl 20 mg PO BID PRN 04/02/20 04/02/20 Disulfiram [Antabuse] 250 mg PO DAILY 04/02/20 04/02/20 Pregabalin [Lyrica] 75 mg PO HS 04/02/20 04/02/20 Rosuvastatin [Crestor] 20 mg PO HS 04/02/20 04/02/20 Previous Rx's Medication Instructions Recorded Dicyclomine [Bentyl] 20 mg PO TID PRN #20 tablet 04/02/20 Ondansetron [Zofran ODT] 4 mg PO Q8HR PRN #15 tab 04/02/20 predniSONE 50 mg PO DAILY #5 tablet 04/02/20 Fluconazole [Diflucan] 150 mg PO ONCE #2 tab 08/16/20 Allergies Allergy/AdvReac Type Severity Reaction Status Date / Time adhesive Allergy Rash/Hives Verified 08/16/20 17:26 latex Allergy Rash/Hives Verified 08/16/20 17:26 Review of Systems ROS Statement: Those systems with pertinent positive or pertinent negative responses have been documented in the HPI. ROS Other: All systems not noted in ROS Statement are negative. Past Medical History Past Medical History: Atrial Fibrillation, Asthma, COPD, Diabetes Mellitus, Hypertension Additional Past Medical History / Comment(s): divirticulitis, crohns, kidney stones, 3X3 mm brain anuerysm, History of Any Multi-Drug Resistant Organisms: None Reported, C-DIFF Date of last positivie culture/infection: 2015 MDRO Source:: stool Past Surgical History: Orthopedic Surgery, Tubal Ligation Additional Past Surgical History / Comment(s): uterine ablasion Past Anesthesia/Blood Transfusion Reactions: No Reported Reaction Past Psychological History: Depression Smoking Status: Current some day smoker Past Alcohol Use History: None Reported Past Drug Use History: Marijuana - Past Family History Mother Family Medical History: COPD Father Family Medical History: Cancer, COPD General Exam Limitations: no limitations General appearance: alert, in no apparent distress Head exam: Present: atraumatic, normocephalic, normal inspection Eye exam: Present: normal appearance, PERRL, EOMI. Absent: scleral icterus, conjunctival injection, periorbital swelling ENT exam: Present: normal exam, mucous membranes moist Neck exam: Present: normal inspection. Absent: tenderness, meningismus, lymphadenopathy Respiratory exam: Present: normal lung sounds bilaterally. Absent: respiratory distress, wheezes, rales, rhonchi, stridor Cardiovascular Exam: Present: regular rate, normal rhythm, normal heart sounds. Absent: systolic murmur, diastolic murmur, rubs, gallop, clicks GI/Abdominal exam: Present: soft, tenderness (suprapubic), normal bowel sounds. Absent: distended, guarding, rebound, rigid Extremities exam: Present: normal inspection, full ROM, normal capillary refill. Absent: tenderness, pedal edema, joint swelling, calf tenderness Back exam: Present: normal inspection Neurological exam: Present: alert, oriented X3, CN II-XII intact Psychiatric exam: Present: normal affect, normal mood Skin exam: Present: warm, dry, intact, normal color. Absent: rash Course Vital Signs 08/16/20 08/16/20 17:22 21:23 Temperature 98.6 F Pulse Rate 104 H 78 Respiratory 18 18 Rate Blood Pressure 138/92 128/86 O2 Sat by Pulse 97 96 Oximetry Medical Decision Making - Medical Decision Making Upon arrival patient was placed in room 6. There are history and physical exam was performed. IV is established and the patient is given a 2 L bolus of normal saline followed by formal grams of morphine. Laboratory studies are conducted. Glucose originally was 389 however does come down to 196. Urinalysis demonstrates glucose however no infection. Acetone is negative. CT the patient of the pelvis demonstrates sigmoid diverticulosis without diverticulitis. Results are discussed with patient. She does report to improvement in her symptoms. Patient will be treated for vaginal yeast infection. Diflucan is sent to the pharmacy. I did inform the patient that she needs to call her primary care doctor for further management of her diabetes. Patient given a work note. Asked to return to the emergency room for any new or worsening symptoms per patient was discharged home in stable condition - Lab Data Result diagrams: 08/16/20 19:20 08/16/20 19:20 Lab Results 08/16/20 08/16/20 08/16/20 Range/Units 17:25 17:42 19:20 WBC 7.2 (3.8-10.6) k/uL RBC 4.76 (3.80-5.40) m/uL Hgb 16.3 H (11.4-16.0) gm/dL Hct 45.3 (34.0-46.0) % MCV 95.3 (80.0-100.0) fL MCH 34.2 (25.0-35.0) pg MCHC 35.9 (31.0-37.0) g/dL RDW 12.0 (11.5-15.5) % Plt Count 285 (150-450) k/uL MPV 8.2 Neutrophils % 57 % Lymphocytes % 32 % Monocytes % 9 % Eosinophils % 1 % Basophils % 1 % Neutrophils # 4.1 (1.3-7.7) k/uL Lymphocytes # 2.3 (1.0-4.8) k/uL Monocytes # 0.6 (0-1.0) k/uL Eosinophils # 0.1 (0-0.7) k/uL Basophils # 0.0 (0-0.2) k/uL Sodium (137-145) mmol/L Potassium (3.5-5.1) mmol/L Chloride (98-107) mmol/L Carbon Dioxide (22-30) mmol/L Anion Gap mmol/L BUN (7-17) mg/dL Creatinine (0.52-1.04) mg/dL Est GFR (CKD-EPI)AfAm (>60 ml/min/1.73 sqM) Est GFR (CKD-EPI)NonAf (>60 ml/min/1.73 sqM) Glucose (74-99) mg/dL POC Glucose (mg/dL) 389 H (75-99) mg/dL POC Glu Barmaid ID Juan, Opal Plasma Lactic Acid [place] (0.7-2.0) mmol/L Calcium (8.4-10.2) mg/dL Magnesium (1.6-2.3) mg/dL Total Bilirubin (0.2-1.3) mg/dL AST (14-36) U/L ALT (4-34) U/L Alkaline Phosphatase (38-126) U/L Total Protein (6.3-8.2) g/dL Albumin (3.5-5.0) g/dL Lipase (23-300) U/L Urine Color Light Yellow Urine Appearance Clear (Clear) Urine pH 5.5 (5.0-8.0) Ur Specific [place] 1.030 (1.001-1.035) Urine Protein Negative (Negative) Urine Glucose (UA) 4+ H (Negative) Urine Ketones Negative (Negative) Urine Blood Negative (Negative) Urine Nitrite Negative (Negative) Urine Bilirubin Negative (Negative) Urine Urobilinogen <2.0 (<2.0) mg/dL Ur Leukocyte Esterase Negative (Negative) Acetone, Qual (Negative) 08/16/20 08/16/20 08/16/20 Range/Units 19:20 19:20 20:59 WBC (3.8-10.6) k/uL RBC (3.80-5.40) m/uL Hgb (11.4-16.0) gm/dL Hct (34.0-46.0) % MCV (80.0-100.0) fL MCH (25.0-35.0) pg MCHC (31.0-37.0) g/dL RDW (11.5-15.5) % Plt Count (150-450) k/uL MPV Neutrophils % % Lymphocytes % % Monocytes % % Eosinophils % % Basophils % % Neutrophils # (1.3-7.7) k/uL Lymphocytes # (1.0-4.8) k/uL Monocytes # (0-1.0) k/uL Eosinophils # (0-0.7) k/uL Basophils # (0-0.2) k/uL Sodium 136 L (137-145) mmol/L Potassium 4.3 (3.5-5.1) mmol/L Chloride 100 (98-107) mmol/L Carbon Dioxide 24 (22-30) mmol/L Anion Gap 12 mmol/L BUN 11 (7-17) mg/dL Creatinine 0.53 (0.52-1.04) mg/dL Est GFR (CKD-EPI)AfAm >90 (>60 ml/min/1.73 sqM) Est GFR (CKD-EPI)NonAf >90 (>60 ml/min/1.73 sqM) Glucose 306 H (74-99) mg/dL POC Glucose (mg/dL) 196 H (75-99) mg/dL POC Glu Barmaid ID Kurtz Henriquez Plasma Lactic Acid [place] 2.0 (0.7-2.0) mmol/L Calcium 10.3 H (8.4-10.2) mg/dL Magnesium 2.1 (1.6-2.3) mg/dL Total Bilirubin 0.5 (0.2-1.3) mg/dL AST 33 (14-36) U/L ALT 44 H (4-34) U/L Alkaline Phosphatase 103 (38-126) U/L Total Protein 7.8 (6.3-8.2) g/dL Albumin 4.7 (3.5-5.0) g/dL Lipase 284 (23-300) U/L Urine Color Urine Appearance (Clear) Urine pH (5.0-8.0) Ur Specific [place] (1.001-1.035) Urine Protein (Negative) Urine Glucose (UA) (Negative) Urine Ketones (Negative) Urine Blood (Negative) Urine Nitrite (Negative) Urine Bilirubin (Negative) Urine Urobilinogen (<2.0) mg/dL Ur Leukocyte Esterase (Negative) Acetone, Qual Negative (Negative) Disposition Clinical Impression: Abdominal pain, Hyperglycemia Disposition: HOME SELF-CARE Condition: Stable Instructions (If sedation given, give patient instructions): Abdominal Pain (ED), Diabetic Hyperglycemia (ED) Additional Instructions: Please follow up with your doctor in 2-4 days. Ask about medication changes to control your sugars. Return to the ED for any new or worsening symptoms. Prescriptions: Fluconazole [Diflucan] 150 mg PO ONCE #2 tab Is patient prescribed a controlled substance at d/c from ED?: No Referrals: Brennon Chavez DO [Primary Care Provider] - 1-2 days Time of Disposition: 21:03
[2020-08-16 21:02] LABS: Glucose,Whole Blood 196 mg/dL (75-99)
[2020-08-16 21:24] VITALS: BP 128/86; PULSE 78
== END 2020-08-16 21:25 | disposition home or self-care (01) ==
LOC: EC 16:53
DX: E11.65 Type 2 diabetes mellitus with hyperglycemia (principal); I10 Essential (primary) hypertension; I48.91 Unspecified atrial fibrillation; J44.9 Chronic obstructive pulmonary disease, unspecified; Z87.442 Personal history of urinary calculi; Z79.82 Long term (current) use of aspirin; Z79.4 Long term (current) use of insulin; Z98.51 Tubal ligation status; F17.200 Nicotine dependence, unspecified, uncomplicated; F12.90 Cannabis use, unspecified, uncomplicated
CPT/HCPCS: 36415; 80053; 82009; 83605; 83690; 83735; 85025; 81003; 74177; 99284; 96374; 96361 ×2; J2270; Q9967

== ENCOUNTER → 2021-01-23 | Outpatient (CLI) | payer OTHER ==
--- NOTE | 2021-01-23 11:02 | XR ---
EXAMINATION TYPE: XR chest 2V DATE OF EXAM: 01/23/2021 COMPARISON: 06/16/2019 TECHNIQUE: PA and lateral views submitted. HISTORY: Shortness of breath FINDINGS: Hyperinflation. Subsegmental changes left lung base. No overt failure. Hypertrophic and degenerative changes spine. Biapical pleural thickening. Chronic right clavicle fracture noted on the right. No ov ert failure. IMPRESSION: 1. COPD with left basilar atelectasis favored over infiltrate.
== END | disposition home or self-care (01) ==
LOC: RADXRMAIN 10:01
PROVIDERS: ATTEND Family Medicine
DX: J44.9 Chronic obstructive pulmonary disease, unspecified (principal)
CPT/HCPCS: 71046

== ENCOUNTER 2022-09-12 10:43 | Emergency (ER) | payer OTHER ==
[2022-09-12] MEDS ORDERED: SODIUM CHLORIDE 0.9% 1,000 ML IV STA (11:25)
[2022-09-12] MEDS ORDERED: ONDANSETRON 4 MG/2 ML VIAL IVP STA (11:25)
[2022-09-12] MEDS ORDERED: PANTOPRAZOLE 40 MG/10 ML VIAL IVP STA (11:26)
[2022-09-12] MEDS ORDERED: MAG HYDROX/AL HYDROX/SIMETH 30 ML, HYOSCYAMINE ELIXIR 10 ML, LIDOCAINE 2% GLYDO JELLY 1... PO STA ×3 (11:26)
[2022-09-12 11:48] LABS: Basophils % (A) 0 %; Eosinophils # (A) 0.1 k/uL (0-0.7); Eosinophils % (A) 1 %; HCT 47.1 % (34.0-46.0); HGB 15.8 gm/dL (11.4-16.0); Lymphocytes # (A) 1.4 k/uL (1.0-4.8); Lymphocytes % (A) 15 %; MCH 31.1 pg (25.0-35.0); MCHC 33.7 g/dL (31.0-37.0); MCV 92.3 fL (80.0-100.0); Mean Platelet Volume 8.1; Monocytes # (A) 0.6 k/uL (0-1.0); Monocytes % (A) 6 %; Neutrophils # (A) 7.4 k/uL (1.3-7.7); Neutrophils % (A) 77 %; Platelet Count 212 k/uL (150-450); RDW 13.5 % (11.5-15.5); WBC 9.6 k/uL (3.8-10.6)
[2022-09-12 12:09] LABS: ALT 18 U/L (4-34); African American GFR (CKD) >90 (>60 ml/min/1.73 sqM); Albumin 4.2 g/dL (3.5-5.0); Anion Gap 8 mmol/L; Blood Urea Nitrogen 11 mg/dL (7-17); Calcium 9.1 mg/dL (8.4-10.2); Carbon Dioxide 25 mmol/L (22-30); Chloride 103 mmol/L (98-107); Creatine Kinase 40 U/L (30-135); Glucose 325 mg/dL (74-99); Non-African American GFR(CKD) >90 (>60 ml/min/1.73 sqM); Sodium 136 mmol/L (137-145); Total Bilirubin 0.6 mg/dL (0.2-1.3); Total Protein 7.2 g/dL (6.3-8.2)
--- NOTE | 2022-09-12 12:17 | XR ---
EXAMINATION TYPE: XR chest 2V DATE OF EXAM: 09/12/2022 COMPARISON: Chest x-ray January 23, 2021 HISTORY: Altered mental status and weakness. TECHNIQUE: Frontal and lateral views of the chest are obtained. FINDINGS: There is no suspicious focal air space opacity, pleural effusion, or pneumothorax seen. T he cardiac silhouette size is stable and within normal limits. The osseous structures are intact. IMPRESSION: No acute process. No significant change from prior.
[2022-09-12 12:34] LABS: AST 23 U/L (14-36)
[2022-09-12 12:35] LABS: Alkaline Phosphatase 102 U/L (38-126)
--- NOTE | 2022-09-12 12:49 | ED ---
General Adult HPI - General Chief complaint: Neuro Symptoms/Deficit Stated complaint: TIA Time Seen by Provider: 09/12/22 10:57 Source: patient, RN notes reviewed, old records reviewed Mode of arrival: ambulatory Limitations: no limitations - History of Present Illness Initial comments: Patient is a 46-year-old female presents emergency department after being sent by her PCP over concern for possible stroke. Patient has a past medical history remarkable for possible atrial fibrillation however she is not on any anticoagulation. Possible history of splenic infarct not taking anticoagulation, COPD, diabetes, hypertension. For the last 5 days she has no some right-sided facial drooping as well as some tingling sensation and decreased sensation over the right side of her body. Denies weakness. Ambulates without difficulty. Denies any change in vision. [place] can headache. Does have a history of intracranial aneurysm that was coiled. Patient thought the symptoms would improve however they didn't which is why she presented to her PCP who sent her to the emergency department for further evaluation. Symptoms have remained constant for the last 5 days without much improvement or worsening.Patient's only other acute complaint is mild gastric pain but she does have history of chronic pancreatitis as well as GERD and she attributes the pain to that. - Related Data Home Medications Medication Instructions Recorded Confirmed Aspirin EC [Ecotrin Low Dose] 81 mg PO DAILY 12/07/19 04/02/20 Ibuprofen 800 mg PO BID PRN 12/07/19 04/02/20 Insulin Glargine,Hum.rec.anlog 30 unit SQ HS 12/07/19 04/02/20 [Basaglwest [place] U-100] Losartan-Hctz 50-12.5 mg [Hyzaar 1 tab PO DAILY 12/07/19 04/02/20 50-12.5] Omeprazole 40 mg PO DAILY 12/07/19 04/02/20 amLODIPine [Norvasc] 5 mg PO DAILY 12/07/19 04/02/20 risperiDONE [RisperDAL] 2 mg PO HS PRN 12/07/19 04/02/20 Dapagliflozin Propanediol [Farxiga] 10 mg PO DAILY 04/02/20 04/02/20 Dicyclomine HCl 20 mg PO BID PRN 04/02/20 04/02/20 Disulfiram [Antabuse] 250 mg PO DAILY 04/02/20 04/02/20 Pregabalin [Lyrica] 75 mg PO HS 04/02/20 04/02/20 Rosuvastatin [Crestor] 20 mg PO HS 04/02/20 04/02/20 Previous Rx's Medication Instructions Recorded Dicyclomine [Bentyl] 20 mg PO TID PRN #20 tablet 04/02/20 Ondansetron [Zofran ODT] 4 mg PO Q8HR PRN #15 tab 04/02/20 predniSONE 50 mg PO DAILY #5 tablet 04/02/20 Fluconazole [Diflucan] 150 mg PO ONCE #2 tab 08/16/20 Allergies Allergy/AdvReac Type Severity Reaction Status Date / Time adhesive Allergy Rash/Hives Verified 09/12/22 10:50 latex Allergy Rash/Hives Verified 09/12/22 10:50 Review of Systems ROS Statement: Those systems with pertinent positive or pertinent negative responses have been documented in the HPI. Review of Systems: CONST: Denies fever EYES: Denies blurry vision ENT: Denies nasal congestion C/V: Denies Chest pain RESP: Denies shortness of breath GI: Endorses epigastric abdominal pain : Denies dysuria SKIN: Denies rash. MSK: Denies joint pain. NEURO: Denies headache ROS Other: All systems not noted in ROS Statement are negative. Past Medical History Past Medical History: Atrial Fibrillation, Asthma, COPD, Diabetes Mellitus, Hypertension Additional Past Medical History / Comment(s): divirticulitis, crohns, kidney stones, 3X3 mm brain anuerysm, History of Any Multi-Drug Resistant Organisms: None Reported, C-DIFF Date of last positivie culture/infection: 2015 MDRO Source:: stool Past Surgical History: Orthopedic Surgery, Tubal Ligation Additional Past Surgical History / Comment(s): uterine ablasion Past Anesthesia/Blood Transfusion Reactions: No Reported Reaction Past Psychological History: Depression Smoking Status: Current every day smoker Past Alcohol Use History: None Reported Past Drug Use History: Marijuana - Past Family History Mother Family Medical History: COPD Father Family Medical History: Cancer, COPD General Exam - General Exam Comments Initial Comments: General: Appears in no acute distress. HEAD: Normal with no signs of head trauma. EYES: PERRLA, EOMI, conjunctiva normal, no discharge. Pupils are 3 mm and equal bilaterally. ENT: Hearing grossly intact, normal oropharynx. RESPIRATORY: Clear breath sounds bilaterally. No wheezes, rales, or rhonchi. C/V: Regular rate and rhythm. S1 and S2 auscultated, no edema, peripheral pulses 2+ and intact throughout ABD: Abd is soft, nontender, nondistended EXT: Normal range of motion, no obvious deformity SKIN: No rashes or lesions observed on exposed skin. NEURO: Alert and oriented 4. NIH is 3 points. 1 point for mild sensory loss in the right side of her body. 2 points for right facial droop. Last known well was 5 days ago. Limitations: no limitations Course Vital Signs 09/12/22 09/12/22 09/12/22 10:48 11:09 13:16 Temperature 98.1 F 98.9 F Pulse Rate 83 78 76 Respiratory 20 18 16 Rate Blood Pressure 135/90 136/95 136/92 O2 Sat by Pulse 97 97 96 Oximetry Medical Decision Making - Medical Decision Making Was pt. sent in by a medical professional or institution (, PA, LABORER/KEY MAN, urgent care, hospital, or correction...) When possible be specific @ -Patient sent by PCP over concern for stroke, 5 days of symptoms Did you speak to anyone other than the patient for history (EMS, parent, family, police, friend...)? What history was obtained from this source @ -No Did you review nursing and triage notes (agree or disagree)? Why? @ -I reviewed and agree with nursing and triage notes Were old charts reviewed (outside hosp., previous admission, EMS record, old EKG, old radiological studies, urgent care reports/EKG's, correction records)? Report findings @ -No old charts were reviewed Differential Diagnosis (chest pain, altered mental status, abdominal pain women, abdominal pain men, vaginal bleeding, weakness, fever, dyspnea, syncope, headache, dizziness, GI bleed, back pain, seizure, CVA, palpatations, mental health, musculoskeletal)? @ -Differential CVA Ischemic stroke, hemorrhagic stroke, brain tumor, atypical migraine, Wernicke's encephalopathy, seizure, multiple sclerosis, meningitis, encephalitis, hypoglycemia, Guillain-Allen, electrolytes disturbance, myasthenia gravis.... This is not meant to be an all-inclusive list EKG interpreted by me (3pts min.). @ -As above X-rays interpreted by me (1pt min.). @ -Chest x-ray shows no evidence of obvious acute cardiopulmonary process. CT interpreted by me (1pt min.). @ -CT brain reveals no obvious acute intracranial process. CT angiogram of the head and neck reveals no obvious intracranial processes stenosis to explain her symptoms. Radiology interpretation is similar. Also note a prior aneurysm clipping with no evidence of new aneurysm or bleed. U/S interpreted by me (1pt. min.). @ -None done What testing was considered but not performed or refused? (CT, X-rays, U/S, labs)? Why? @ -None What meds were considered but not given or refused? Why? @ -None Did you discuss the management of the patient with other professionals (professionals i.e. , PA, LABORER/KEY MAN, lab, RT, psych nurse, social work manager, sawmill hand, teacher, residential care officer, test case developer)? Give summary @ -No Was smoking cessation discussed for >3mins.? @ -No Was critical care preformed (if so, how long)? @ -yes, 35 min Were there social determinants of health that impacted care today? How? (Homelessness, low income, unemployed, alcoholism, drug addiction, transportation, low edu. Level, literacy, decrease access to med. care, long-term, rehab)? @ -No Was there de-escalation of care discussed even if they declined (Discuss DNR or withdrawal of care, Hospice)? DNR status @ -No What co-morbidities impacted this encounter? (DM, HTN, Smoking, COPD, CAD, Cancer, CVA, ARF, Chemo, Hep., AIDS, mental health diagnosis, sleep apnea, morbid obesity)? @ -None Was patient admitted / discharged? Hospital course, mention meds given and route, prescriptions, significant lab abnormalities, going to OR and other pertinent info. @ -Based on the patient's presentation and physical exam, I'm concerned for possible stroke for the patient. Last known well was 5 days ago. NIH is 3, and appears to be stable over the last 5 days. Patient is not a TPA candidate as risks far outweigh the benefits at this point. She is outside of the window. I discussed this with the patient and she understood. We will still work her up for a stroke at this point. We will also provide her with analgesia medications for her abdominal pain. She was in agreement this plan. Vital signs within acceptable limits. EKG shows no signs of acute ischemia.Patient's imaging is unremarkable. Laboratory studies show hyperglycemia but undetectable troponin. Remainder of labs are within acceptable limits. On reevaluation, patient still having some mild abdominal discomfort as well as her symptoms. I do believe this is a CVA as there is sparing of the forehead muscles. Facial droop is isolated to the right lower face in addition to the right sided mild decreased sensation to light touch. I did recommend admission for continued abdominal discomfort as well as her continued symptoms for neurology evaluation possible MRI the patient would like to go home. She refuses admission at this time. Patient states she still feels somewhat lightheaded. As she is still symptomatic, I did recommend admission again which she declined. Patient will be discharged AGAINST MEDICAL ADVICE. She'll be given an aspirin prior to discharge. The patient was apprised of the potential risks of leaving the hospital AGAINST MEDICAL ADVICE, including serious complications, permanent disability, and . At the time of my interview the patient, the patient was alert, oriented, and capable. Patient signed AMA form, which was witnessed and signed by nursing staff, and placed in patient's chart. I urged the patient to return to the hospital as soon as possible to complete evaluation and treatment. Undiagnosed new problem with uncertain prognosis? @ -No Drug Therapy requiring intensive monitoring for toxicity (Heparin, Nitro, Insulin, Cardizem)? @ -No Were any procedures done? @ -No Diagnosis/symptom? @ -CVA Acute, or Chronic, or Acute on Chronic? @ -Acute Uncomplicated (without systemic symptoms) or Complicated (systemic symptoms)? @ -Complicated Side effects of treatment? @ -none Exacerbation, Progression, or Severe Exacerbation] @ -no Poses a threat to life or bodily function? @ -Yes Diagnosis/symptom? @ -Abdominal pain of unknown etiology with history of pancreatitis Acute, or Chronic, or Acute on Chronic? @ -Acute on chronic Uncomplicated (without systemic symptoms) or Complicated (systemic symptoms)? @ -Complicated Side effects of treatment? @ -none Exacerbation, Progression, or Severe Exacerbation] @ -no Poses a threat to life or bodily function? @ -no - Lab Data Result diagrams: 09/12/22 11:33 09/12/22 11:33 Lab Results 09/12/22 09/12/22 09/12/22 Range/Units 11:33 11:33 11:33 WBC 9.6 (3.8-10.6) k/uL RBC 5.10 (3.80-5.40) m/uL Hgb 15.8 (11.4-16.0) gm/dL Hct 47.1 H (34.0-46.0) % MCV 92.3 (80.0-100.0) fL MCH 31.1 (25.0-35.0) pg MCHC 33.7 (31.0-37.0) g/dL RDW 13.5 (11.5-15.5) % Plt Count 212 (150-450) k/uL MPV 8.1 Neutrophils % 77 % Lymphocytes % 15 % Monocytes % 6 % Eosinophils % 1 % Basophils % 0 % Neutrophils # 7.4 (1.3-7.7) k/uL Lymphocytes # 1.4 (1.0-4.8) k/uL Monocytes # 0.6 (0-1.0) k/uL Eosinophils # 0.1 (0-0.7) k/uL Basophils # 0.0 (0-0.2) k/uL PT 10.2 (9.0-12.0) sec INR 1.0 (<1.2) APTT 23.7 (22.0-30.0) sec Sodium 136 L (137-145) mmol/L Potassium 4.0 (3.5-5.1) mmol/L Chloride 103 (98-107) mmol/L Carbon Dioxide 25 (22-30) mmol/L Anion Gap 8 mmol/L BUN 11 (7-17) mg/dL Creatinine 0.43 L (0.52-1.04) mg/dL Est GFR (CKD-EPI)AfAm >90 (>60 ml/min/1.73 sqM) Est GFR (CKD-EPI)NonAf >90 (>60 ml/min/1.73 sqM) Glucose 325 H (74-99) mg/dL Calcium 9.1 (8.4-10.2) mg/dL Total Bilirubin 0.6 (0.2-1.3) mg/dL AST 23 (14-36) U/L ALT 18 (4-34) U/L Alkaline Phosphatase 102 (38-126) U/L Creatine Kinase 40 (30-135) U/L Troponin I (0.000-0.034) ng/mL Total Protein 7.2 (6.3-8.2) g/dL Albumin 4.2 (3.5-5.0) g/dL 09/12/22 Range/Units 11:33 WBC (3.8-10.6) k/uL RBC (3.80-5.40) m/uL Hgb (11.4-16.0) gm/dL Hct (34.0-46.0) % MCV (80.0-100.0) fL MCH (25.0-35.0) pg MCHC (31.0-37.0) g/dL RDW (11.5-15.5) % Plt Count (150-450) k/uL MPV Neutrophils % % Lymphocytes % % Monocytes % % Eosinophils % % Basophils % % Neutrophils # (1.3-7.7) k/uL Lymphocytes # (1.0-4.8) k/uL Monocytes # (0-1.0) k/uL Eosinophils # (0-0.7) k/uL Basophils # (0-0.2) k/uL PT (9.0-12.0) sec INR (<1.2) APTT (22.0-30.0) sec Sodium (137-145) mmol/L Potassium (3.5-5.1) mmol/L Chloride (98-107) mmol/L Carbon Dioxide (22-30) mmol/L Anion Gap mmol/L BUN (7-17) mg/dL Creatinine (0.52-1.04) mg/dL Est GFR (CKD-EPI)AfAm (>60 ml/min/1.73 sqM) Est GFR (CKD-EPI)NonAf (>60 ml/min/1.73 sqM) Glucose (74-99) mg/dL Calcium (8.4-10.2) mg/dL Total Bilirubin (0.2-1.3) mg/dL AST (14-36) U/L ALT (4-34) U/L Alkaline Phosphatase (38-126) U/L Creatine Kinase (30-135) U/L Troponin I <0.012 (0.000-0.034) ng/mL Total Protein (6.3-8.2) g/dL Albumin (3.5-5.0) g/dL - EKG Data -: EKG Interpreted by Me EKG Comments: 12-lead Electrocardiogram Interpretation Note EKG was reviewed and interpreted by myself. 12-lead ECG performed at 1058 is interpreted by me as revealing normal sinus rhythm at a rate of 72 beats per minute. [place] is normal. [place] interval is 142 ms, QRS duration 72 ms, QTc is 466 ms.. There were no ST or T wave abnormalities to suggest myocardial ischemia or injury. R wave progression across the precordium was satisfactory. By my interpretation this EKG is non-diagnostic for acute ischemia. Critical Care Time Critical Care Time: Yes Total Critical Care Time: 35 Disposition Clinical Impression: Cerebrovascular accident (CVA), Abdominal pain Disposition: LEFT AGAINST MEDICAL ADVICE Referrals: Emma Tang [Primary Care Provider] - 1-2 days Time of Disposition: 13:45
[2022-09-12 12:58] LABS: Partial Thromboplastin Time 23.7 sec (22.0-30.0); Prothrombin Time 10.2 sec (9.0-12.0)
--- NOTE | 2022-09-12 13:09 | CT ---
EXAMINATION TYPE: CT brain wo con DATE OF EXAM: 09/12/2022 COMPARISON: 12/07/2019 HISTORY: Right sided facial droop x [address] DLP: 1129.[address] of the brain was performed. The ventricles, basal cisterns and sulci overlying the cerebral convexities demonstrate a normal appe arance. Suprasellar aneurysm clipping with limiting streak artifact. There is no evidence for intracranial hemorrhage or sulcal effacement. No mass effects are seen. Osseous calvarium is intact. If symptoms persist consider MRI as clinically warranted. IMPRESSION: 1. No acute intracranial process is seen at this time.
--- NOTE | 2022-09-12 13:27 | CT ---
EXAMINATION TYPE: CT angio head neck DATE OF EXAM: 09/12/2022 COMPARISON: None HISTORY: Right sided facial droop x [address] DLP: 1605.1 mGycm CONTRAST: Performed without and with IV Contrast, patient injected with 65 ml mL of Isovue 370. Combination Contrast CTA cervical carotids and [place] CTA cervical carotids with 3-D recons truction Contrast CTA of the cervical carotids was performed 3-D reconstruction imaging obtained at a separate workstation. Right carotid system: Mild plaque is seen of the right common carotid artery. There is mild plaque a lso noted at the carotid bulb and proximal ICA. No significant diameter reduction. ECA is patent. Right vertebral artery appears unremarkable. Left carotid system: Mild plaque is seen of the left common carotid artery. There is mild plaque als o noted at the carotid bulb and proximal ICA. No significant diameter reduction. ECA is patent. Lef t vertebral artery appears unremarkable. IMPRESSION: 1. No significant diameter reduction to account for the patient's symptoms. CTA [place] with 3-D reconstruction Contrast CTA of the [place] was performed 3-D reconstruction imaging obtained at a separate workstation. There is evidence of suprasellar aneurysm clipping with streak artifact which limits portion of the s tudy. Vertebrobasilar system as well as intracranial portions of the internal carotid arteries and th eir major tributaries are patent. I do not see evidence for sizable aneurysm or vascular malformatio n. Please note MRI provides greater sensitivity and specificity. Visualized brain appears grossly u nremarkable. IMPRESSION: 1. Postoperative changes of prior aneurysm clipping. No evidence for sizable aneurysm at this time. NASCET criteria was used in interpretation of this exam?
[2022-09-12] MEDS ORDERED: ASPIRIN 325 MG TAB PO STA (13:57)
[2022-09-12 14:03] VITALS: BP 128/92; PULSE 80; RESP 17; TEMP 98.1
== END 2022-09-12 14:02 | disposition left against medical advice (07) ==
LOC: EC 10:43
DX: I63.9 Cerebral infarction, unspecified (principal); R10.9 Unspecified abdominal pain; I48.91 Unspecified atrial fibrillation; J44.9 Chronic obstructive pulmonary disease, unspecified; E11.9 Type 2 diabetes mellitus without complications; I10 Essential (primary) hypertension; F32.A Depression, unspecified; F17.200 Nicotine dependence, unspecified, uncomplicated; F12.90 Cannabis use, unspecified, uncomplicated; Z91.040 Latex allergy status; Z88.8 Allergy status to other drugs, medicaments and biological substances; Z79.82 Long term (current) use of aspirin; Z79.84 Long term (current) use of oral hypoglycemic drugs; Z79.4 Long term (current) use of insulin; Z79.899 Other long term (current) drug therapy; Z53.29 Procedure and treatment not carried out because of patient's decision for other reasons
CPT/HCPCS: 36415; 93005; 80053; 82550; 84484; 85025; 85610; 85730; 71046; 70496; 70450; 70498; 99284; 96374; 96375; 96361; J2405; C9113; Q9967